=== PATIENT | female | born 1955 | race Caucasian/White ===

== ENCOUNTER 2016-12-25 07:06 | Inpatient (IN) | payer BC ==
[~2016-12-25] VITALS: Ht 172.7 cm; Wt 119.7 kg
--- NOTE | 2016-12-25 07:22 | PHYS DOC ---
Adult General Chief Complaint Chief Complaint: NEURO SYMPTOMS/DEFICITS HPI HPI Patient is a 61 year old F who presents with left-sided facial droop. Patient states she woke up this morning with left-sided facial droop however went to bed last night around 10 PM and was normal. Patient has had a recent stroke and has recently been worked up including MRI. Patient states she's had some left upper extremity weakness that is been persistent since her recent stroke. Patient complains of some slurring of the speech along with her facial droop. Patient denies any difficulty swallowing. Patient denies any other new neurological symptoms. Patient denies any chest pain or short of breath. Patient has no other complaints. Review of Systems Review of Systems GEN: Denies fevers, chills, sweats HEENT: Denies blurred vision, sore throat CV: Denies chest pain RESP: Denies shortness of air, cough GI: Denies n/v/d NEURO: Left-sided facial droop MSK: Denies weakness, joint pain/swelling Allergies Allergies Allergies Coded Allergies Type Severity Reaction Last Updated Verified No Known Drug Allergies 12/25/16 No Physical Exam Physical Exam GEN.: No apparent distress. Alert and oriented. HEENT: Head is normocephalic, atraumatic extraocular muscles were intact NECK: Supple. LUNGS: CTAB. HEART: RRR, S1, S2 present. Peripheral pulses intact ABDOMEN: Soft, nontender. Positive bowel sounds. EXTREMITIES: Without any cyanosis. Left upper extremity proximal and distal weakness with decreased seconds inspector strength consistent with previous stroke NEUROLOGIC: Slurred speech, left-sided facial droop with forehead sparing PSYCHIATRIC: Normal affect, normal mood. SKIN: No ulcerations Current Patient Data Vital Signs Vital Signs Date Time Temp Pulse Resp B/P (MAP) Pulse Ox O2 Delivery O2 Flow Rate FiO2 12/25/16 07:21 97.9 95 18 160/112 (128) 97 Room Air 97.9 Lab Values Laboratory Tests Test 12/25/16 07:38 White Blood Count 8.9 x10^3/uL (4.0-11.0) Red Blood Count 5.36 x10^6/uL (3.50-5.40) Hemoglobin 16.3 g/dL (12.0-15.5) H Hematocrit 48.6 % (36.0-47.0) H Mean Corpuscular Volume 91 fL (79-100) Mean Corpuscular Hemoglobin 30 pg (25-35) Mean Corpuscular Hemoglobin Concent 34 g/dL (31-37) Red Cell Distribution Width 13.7 % (11.5-14.5) Platelet Count 235 x10^3/uL (140-400) Neutrophils (%) (Auto) 73 % (31-73) Lymphocytes (%) (Auto) 17 % (24-48) L Monocytes (%) (Auto) 7 % (0-9) Eosinophils (%) (Auto) 2 % (0-3) Basophils (%) (Auto) 1 % (0-3) Neutrophils # (Auto) 6.5 x10^3uL (1.8-7.7) Lymphocytes # (Auto) 1.5 x10^3/uL (1.0-4.8) Monocytes # (Auto) 0.6 x10^3/uL (0.0-1.1) Eosinophils # (Auto) 0.2 x10^3/uL (0.0-0.7) Basophils # (Auto) 0.1 x10^3/uL (0.0-0.2) Sodium Level 141 mmol/L (136-145) Potassium Level 4.0 mmol/L (3.5-5.1) Chloride Level 103 mmol/L (98-107) Carbon Dioxide Level 32 mmol/L (21-32) Anion Gap 6 (6-14) Blood Urea Nitrogen 20 mg/dL (7-20) Creatinine 0.8 mg/dL (0.6-1.0) Estimated GFR (Cockcroft-Gault) 72.4 BUN/Creatinine Ratio 25 (6-20) H Glucose Level 115 mg/dL (70-99) H Calcium Level 9.3 mg/dL (8.5-10.1) Total Bilirubin 0.4 mg/dL (0.2-1.0) Aspartate Amino Transferase (AST) 12 U/L (15-37) L Alanine Aminotransferase (ALT) 24 U/L (14-59) Alkaline Phosphatase 100 U/L (46-116) Troponin I Quantitative < 0.017 ng/mL (0.000-0.055) Total Protein 7.3 g/dL (6.4-8.2) Albumin 3.6 g/dL (3.4-5.0) Albumin/Globulin Ratio 1.0 (1.0-1.7) Laboratory Tests 12/25/16 07:38 Laboratory Tests 12/25/16 07:38 EKG EKG 0808: EKG shows normal sinus rhythm rate of 84 no STEMI[] Radiology/Procedures Radiology/Procedures [] Course & Med Decision Making Course & Med Decision Making Pertinent Labs and Imaging studies reviewed. (See chart for details) ED course: Patient was seen and examined in the emergency room stroke workup was ordered 0755: Patient was updated on CT findings and plan to admit for possible stroke and obtain an MRI 0800: Discussed CC/HP/PMH with Dr. roman and recommends admit and neurology on consult 0805: Discussed CC/HP/PMH with Dr. Shipley and recommends MRI and asprin MDM: After reviewing the chart, CC/HPI/PMH, physical exam, [lab results], [ radiological results], I believe the patient and acute CVA however is not a candidate for TPA since last known well was 10 PM last night as outside the three-hour window. Patient will be admitted for further workup and management. [] Dragon Disclaimer Dragon Disclaimer This electronic medical record was generated, in whole or in part, using a voice recognition dictation system. Departure Departure Impression: Primary Impression: CVA (cerebral vascular accident) Disposition: ADMITTED INPATIENT Admitting Physician: Gracy Roman Condition: STABLE POPEYE DALAL DO Dec 25, 2016 07:22
--- NOTE | 2016-12-25 07:39 | RAD ---
Indication left-sided facial droop and weakness. The patient reports she was told she had a recent right-sided stroke. Noncontrast images of the head were obtained. No prior imaging of the head is available. Preliminary results were communicated to Dr. Ram, in the emergency room, at the time of dictation. The calvarium appears unremarkable. The visualized paranasal sinuses appear normal. There is no subdural or epidural hematoma. There is some enlargement of the cisterna magna, a normal variant. There is some parenchymal loss in the right parietal lobe near the vertex compatible with an old insult. A mass or midline shift is not seen. No hemorrhage is seen. No acute finding is apparent. IMPRESSION: No acute finding seen on noncontrast CT images of the head PQRS Compliance Statement: One or more of the following individualized dose reduction techniques were utilized for this examination: 1. Automated exposure control 2. Adjustment of the mA and/or kV according to patient size 3. Use of iterative reconstruction technique
[2016-12-25 07:55] LABS: BASO # 0.1 x10^3/uL (0.0-0.2); BASO % 1 % (0-3); EOS % 2 % (0-3); HEMATOCRIT 48.6 % (36.0-47.0); HEMOGLOBIN 16.3 g/dL (12.0-15.5); LYMPH # 1.5 x10^3/uL (1.0-4.8); LYMPH % 17 % (24-48); MEAN CORPUSCULAR HEMOGLOBIN 30 pg (25-35); MEAN CORPUSCULAR HGB CONC 34 g/dL (31-37); MEAN CORPUSCULAR VOLUME 91 fL (79-100); MONO % 7 % (0-9); NEUT % 73 % (31-73); PLATELET COUNT 235 x10^3/uL (140-400); RED BLOOD COUNT 5.36 x10^6/uL (3.50-5.40); RED CELL DISTRIBUTION WIDTH 13.7 % (11.5-14.5); WHITE BLOOD COUNT 8.9 x10^3/uL (4.0-11.0)
[2016-12-25 08:02] LABS: CALCIUM 9.3 mg/dL (8.5-10.1); CREATININE 0.8 mg/dL (0.6-1.0); GFR 72.4
--- NOTE | 2016-12-25 08:05 | RAD ---
Indication possible stroke. Protocol study. A single view of the chest was obtained. No prior imaging of the chest is available. The heart and pulmonary vessels appear normal. The lungs are clear. There is no pleural fluid or pneumothorax. The visualized bony structures appear grossly intact. IMPRESSION: No acute or focal process seen in the chest
[2016-12-25 08:08] LABS: ALBUMIN 3.6 g/dL (3.4-5.0); TOTAL BILIRUBIN 0.4 mg/dL (0.2-1.0); TOTAL PROTEIN 7.3 g/dL (6.4-8.2)
[2016-12-25] MEDS ORDERED: ACETAMINOPHEN 325 MG TABLET. PO PRN ×2 (08:15→10:15)
[2016-12-25] MEDS ORDERED: MORPHINE SULFATE 4 MG/ML DISP.SYRIN. IV PRN (08:15)
[2016-12-25] MEDS ORDERED: ONDANSETRON PF 4 MG/2 ML VIAL. IV PRN ×2 (08:15→12:45)
[2016-12-25 08:31] LABS: BILIRUBIN,URINE NEGATIVE (NEG); GLUCOSE,URINE NEGATIVE (NEG); NITRITE,URINE NEGATIVE (NEG); PROTEIN,URINE NEGATIVE (NEG-TRACE); UROBILINOGEN,URINE 0.2 mg/dL (0.2 mg/dL)
[2016-12-25] MEDS ORDERED: ASPIRIN 325 MG TABLET PO ONE (08:45)
--- NOTE | 2016-12-25 08:47 | EKG ---
[facility] [address] [place] [address] Test Date: 2016-12-25 Test Time: 08:03:14 Pat Name: GATITO HANNA Department: Room: [facility] Gender: F Provider Relations Advocate: VALERIA : 1955 Requested By: POPEYE DALAL Order Number: [id number] Reading MD: Maisha Wiggins Measurements Intervals [place] Rate: 84 P: 108 TN: 170 QRS: -16 QRSD: 84 T: 58 QT: 362 QTc: 431 Interpretive Statements SINUS RHYTHM LEFTWARD AXIS QRS(T) CONTOUR ABNORMALITY CANNOT RULE OUT ANTEROSEPTAL MYOCARDIAL DAMAGE T ABNORMALITY IN HIGH LATERAL LEADS Electronically Signed On 12-28-2016 9:31:42 CDT by Maisha Wiggins
[2016-12-25 08:48] LABS: BACTERIA,URINE FEW /HPF (0-FEW); RBC,URINE 0 /HPF (0-2); SQUAMOUS EPITHELIAL CELL,UR FEW /LPF
[2016-12-25] MEDS ORDERED: GADOBUTROL 10 MMOL/10 ML VIAL IV ONE (09:00)
[2016-12-25] MEDS ORDERED: ASPIRIN CHEWABLE 81 MG TABLET. PO ONE (09:00)
--- NOTE | 2016-12-25 09:29 | RAD ---
MRI Brain with and without contrast History: Left arm numbness Technique: Multiplanar, multi sequential pre and postcontrast MR imaging was performed of the brain. Contrast: 10 cc Gadavist Comparison: None Findings: There is a fairly large area of restricted diffusion centered in the right parietal lobe with cortical involvement with corresponding T2 and FLAIR hyperintense signal, also prominent associated laminar necrosis signified by serpentine T1 shortening, not associated with significant decreased signal on the gradient echo sequence. Area of diffusion signal abnormality is mostly associated with some variable isointense decreased signal on the ADC map although also more focal area of restricted diffusion along the right parietal cortex not associated with significant T2 and FLAIR hyperintense signal. There are also a few other small foci restricted diffusion with corresponding T2 and FLAIR hyperintense signal of the right frontal lobe and right occipital lobe. There is tiny old lacunar infarct of the right cerebellum.,The ventricles, sulci, and cisterns are within normal limits in size and configuration. There is no significant midline shift, intraaxial mass effect, or focal abnormal extra-axial fluid collection. There is preservation of the major intracranial flow-voids at the skull base. The cerebellar tonsils are normal in location. Pituitary gland is small. There is increased CSF signal of the optic nerve sheaths bilaterally. There is patchy mild ethmoid air cell mucosal thickening. There is very minimal thickening of the mastoid air cells. Impression: 1. There is large late subacute infarct centered in the right parietal lobe although likely component of superimposed more acute infarct along the cortical surface. There is associated prominent laminar necrosis. There are also a a few small foci of recent likely subacute infarcts of the right frontal lobe and right occipital lobe. 2. There is increased CSF signal of the optic nerve sheaths and small pituitary gland. Findings could be incidental although can be associated with intracranial hypertension. FOR INTERNAL CODING PURPOSES Critical result: Findings discussed with Yosvany Ram at 12/25/2016 9:16 AM. RESULT CODE: (C) Electronically signed by: Matt Pearce MD (12/25/2016 9:25 AM) [email or web address]
[2016-12-25] MEDS ORDERED: ACETAMINOPHEN 650 MG SUPP.RECT. PR PRN (10:00)
[2016-12-25] MEDS ORDERED: LABETALOL 20 MG/4 ML DISP.SYRIN. IVP PRN (10:00)
[2016-12-25 10:42] VITALS: BP 145/90
[2016-12-25 10:43] VITALS: BP 145/90
--- NOTE | 2016-12-25 11:03 | PDOC2 ---
NEUROLOGY CONSULT Date of Admission Date of Admission DATE: 12/25/16 TIME: 10:56 Reason for Consult Reason for Consult: Stroke symptoms Referring Physician Referring Physician: Dr. Ponce PCP: Dr. Ontiveros Source Source: Caregiver, Chart review, Patient History of Present Illness History of Present Illness The patient is a 61-year-old right-handed female who awoke this morning with left facial weakness. She had some dysarthria. Symptoms have improved. Last known normal was 10 PM last night. 2 weeks ago she had sudden onset of left hand weakness. Her primary physician work drop as an outpatient with negative MRI brain, echocardiogram, and carotid Doppler. The patient is taking a daily aspirin. she has no prior history of stroke, seizure, or head injury. 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 Current Medications Current Medications Current Medications Ondansetron HCl (Zofran) 4 mg PRN Q8HRS PRN IV NAUSEA/VOMITING; Start 12/25/16 at 08:15; Stop 12/26/16 at 08:14 Morphine Sulfate 4 mg PRN Q2HR PRN IV PAIN; Start 12/25/16 at 08:15; Stop at 08:14 Acetaminophen (Tylenol) 650 mg PRN Q4HRS PRN PO FEVER; Start 12/25/16 at 08:15; Stop 12/26/16 at 08:14 Aspirin (Solomon Aspirin) 325 mg 1X ONCE PO ; Start 12/25/16 at 08:45; Stop at 09:02; Status DC Gadobutrol (Gadavist) 10 mmol 1X ONCE IV Last administered on 12/25/16 08:43; Start 12/25/16 at 09:00; Stop 12/25/16 at 09:01; Status DC Aspirin (Children'S Aspirin) 243 mg 1X ONCE PO Last administered on 12/25/16 09:03; Start 12/25/16 at 09:00; Stop 12/25/16 at 09:06; Status DC Sodium Chloride 1,000 ml @ 100 mls/hr Q10H IV ; Start 12/25/16 at 10:00 Enoxaparin Sodium (Lovenox 40mg Syringe) 40 mg BID SQ ; Start 12/25/16 at 11:00 Labetalol HCl (Normodyne) 10 mg PRN Q10MIN PRN IVP COMM; Start 12/25/16 at 10:00 Simvastatin (Zocor) 10 mg QHS PO ; Start 12/25/16 at 21:00 Acetaminophen (Tylenol) 650 mg PRN Q4HRS PRN PO TEMP > 100.4F; Start 12/25/16 at 10:15 Acetaminophen (Acetaminophen Supp) 650 mg PRN Q4HRS PRN TX TEMP > 100.4F; Start 12/25/16 at 10:00 Allergies Allergies: Coded Allergies: No Known Drug Allergies (Unverified , 12/25/16) ROS Review of System Negative for fevers, chills, weight loss, shortness of breath, chest pain, indigestion, hematochezia, melena, dysuria. Full 14-point review systems is negative. Physical Exam Physical Examination PHYSICAL EXAMINATION: Vital signs: see above. General appearance is normal and in no acute distress. HEENT: Normocephalic and nontraumatic. Eyes, nose, ears, and throat are unremarkable. Neck is supple. No lymphadenopathy. No bruits are heard over the carotid artery. No crepitus. NEUROLOGICAL EXAMINATION: Mental Status Examination: Alert. Oriented to time, place, and person. Answers questions and follows commends. Pupils are equal round and reactive to light and accommodation. Extraocular movements are intact. Visual field exam shows no defect on the direct confrontation. Central left facial weakness. Uvula in the midline and the soft palate elevated symmetrically. No deviation of the tongue to any direction. Gross hearing is normal. Shoulder shrug normal. Muscle tone is normal. 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 Deep tendon reflexes are 2+ all around. Plantar reflex is with flexion response bilaterally. [id number] test performance is accurate. Tandem walk test is accurate. Alternative movements are accurate. Romberg test is negative. Gait is normal. Sensory exam shows no deficits. No cerebellar signs are elicited. Vitals VITALS Vital Signs Date Time Temp Pulse Resp B/P (MAP) Pulse Ox O2 Delivery O2 Flow Rate FiO2 12/25/16 10:43 97.7 90 19 145/90 (108) 95 Room Air 97.7 Labs Labs Laboratory Tests Test 12/25/16 07:38 12/25/16 08:13 White Blood Count 8.9 x10^3/uL (4.0-11.0) Red Blood Count 5.36 x10^6/uL (3.50-5.40) Hemoglobin 16.3 g/dL (12.0-15.5) Hematocrit 48.6 % (36.0-47.0) Mean Corpuscular Volume 91 fL (79-100) Mean Corpuscular Hemoglobin 30 pg (25-35) Mean Corpuscular Hemoglobin Concent 34 g/dL (31-37) Red Cell Distribution Width 13.7 % (11.5-14.5) Platelet Count 235 x10^3/uL (140-400) Neutrophils (%) (Auto) 73 % (31-73) Lymphocytes (%) (Auto) 17 % (24-48) Monocytes (%) (Auto) 7 % (0-9) Eosinophils (%) (Auto) 2 % (0-3) Basophils (%) (Auto) 1 % (0-3) Neutrophils # (Auto) 6.5 x10^3uL (1.8-7.7) Lymphocytes # (Auto) 1.5 x10^3/uL (1.0-4.8) Monocytes # (Auto) 0.6 x10^3/uL (0.0-1.1) Eosinophils # (Auto) 0.2 x10^3/uL (0.0-0.7) Basophils # (Auto) 0.1 x10^3/uL (0.0-0.2) Sodium Level 141 mmol/L (136-145) Potassium Level 4.0 mmol/L (3.5-5.1) Chloride Level 103 mmol/L (98-107) Carbon Dioxide Level 32 mmol/L (21-32) Anion Gap 6 (6-14) Blood Urea Nitrogen 20 mg/dL (7-20) Creatinine 0.8 mg/dL (0.6-1.0) Estimated GFR (Cockcroft-Gault) 72.4 BUN/Creatinine Ratio 25 (6-20) Glucose Level 115 mg/dL (70-99) Calcium Level 9.3 mg/dL (8.5-10.1) Total Bilirubin 0.4 mg/dL (0.2-1.0) Aspartate Amino Transf (AST/SGOT) 12 U/L (15-37) Alanine Aminotransferase (ALT/SGPT) 24 U/L (14-59) Alkaline Phosphatase 100 U/L (46-116) Troponin I Quantitative < 0.017 ng/mL (0.000-0.055) Total Protein 7.3 g/dL (6.4-8.2) Albumin 3.6 g/dL (3.4-5.0) Albumin/Globulin Ratio 1.0 (1.0-1.7) Urine Collection Type Unknown Urine Color Yellow Urine Clarity Clear Urine pH 5.0 Urine Specific [place] 1.010 Urine Protein Negative mg/dL (NEG-TRACE) Urine Glucose (UA) Negative mg/dL (NEG) Urine Ketones (Stick) Negative mg/dL (NEG) Urine Blood Negative (NEG) Urine Nitrite Negative (NEG) Urine Bilirubin Negative (NEG) Urine Urobilinogen Dipstick 0.2 mg/dL (0.2 mg/dL) Urine Leukocyte Esterase Negative (NEG) Urine RBC 0 /HPF (0-2) Urine WBC 1-4 /HPF (0-4) Urine Squamous Epithelial Cells Few /LPF Urine Bacteria Few /HPF (0-FEW) Urine Mucus Slight /LPF Laboratory Tests Test 12/25/16 07:38 12/25/16 08:13 White Blood Count 8.9 x10^3/uL (4.0-11.0) Red Blood Count 5.36 x10^6/uL (3.50-5.40) Hemoglobin 16.3 g/dL (12.0-15.5) Hematocrit 48.6 % (36.0-47.0) Mean Corpuscular Volume 91 fL (79-100) Mean Corpuscular Hemoglobin 30 pg (25-35) Mean Corpuscular Hemoglobin Concent 34 g/dL (31-37) Red Cell Distribution Width 13.7 % (11.5-14.5) Platelet Count 235 x10^3/uL (140-400) Neutrophils (%) (Auto) 73 % (31-73) Lymphocytes (%) (Auto) 17 % (24-48) Monocytes (%) (Auto) 7 % (0-9) Eosinophils (%) (Auto) 2 % (0-3) Basophils (%) (Auto) 1 % (0-3) Neutrophils # (Auto) 6.5 x10^3uL (1.8-7.7) Lymphocytes # (Auto) 1.5 x10^3/uL (1.0-4.8) Monocytes # (Auto) 0.6 x10^3/uL (0.0-1.1) Eosinophils # (Auto) 0.2 x10^3/uL (0.0-0.7) Basophils # (Auto) 0.1 x10^3/uL (0.0-0.2) Sodium Level 141 mmol/L (136-145) Potassium Level 4.0 mmol/L (3.5-5.1) Chloride Level 103 mmol/L (98-107) Carbon Dioxide Level 32 mmol/L (21-32) Anion Gap 6 (6-14) Blood Urea Nitrogen 20 mg/dL (7-20) Creatinine 0.8 mg/dL (0.6-1.0) Estimated GFR (Cockcroft-Gault) 72.4 BUN/Creatinine Ratio 25 (6-20) Glucose Level 115 mg/dL (70-99) Calcium Level 9.3 mg/dL (8.5-10.1) Total Bilirubin 0.4 mg/dL (0.2-1.0) Aspartate Amino Transf (AST/SGOT) 12 U/L (15-37) Alanine Aminotransferase (ALT/SGPT) 24 U/L (14-59) Alkaline Phosphatase 100 U/L (46-116) Troponin I Quantitative < 0.017 ng/mL (0.000-0.055) Total Protein 7.3 g/dL (6.4-8.2) Albumin 3.6 g/dL (3.4-5.0) Albumin/Globulin Ratio 1.0 (1.0-1.7) Urine Collection Type Unknown Urine Color Yellow Urine Clarity Clear Urine pH 5.0 Urine Specific [place] 1.010 Urine Protein Negative mg/dL (NEG-TRACE) Urine Glucose (UA) Negative mg/dL (NEG) Urine Ketones (Stick) Negative mg/dL (NEG) Urine Blood Negative (NEG) Urine Nitrite Negative (NEG) Urine Bilirubin Negative (NEG) Urine Urobilinogen Dipstick 0.2 mg/dL (0.2 mg/dL) Urine Leukocyte Esterase Negative (NEG) Urine RBC 0 /HPF (0-2) Urine WBC 1-4 /HPF (0-4) Urine Squamous Epithelial Cells Few /LPF Urine Bacteria Few /HPF (0-FEW) Urine Mucus Slight /LPF Images Images CT head: Noncontrast images of the head were obtained. No prior imaging of the head is available. Preliminary results were communicated to Dr. Ram, in the emergency room, at the time of dictation. The calvarium appears unremarkable. The visualized paranasal sinuses appear normal. There is no subdural or epidural hematoma. There is some enlargement of the cisterna magna, a normal variant. There is some parenchymal loss in the right parietal lobe near the vertex compatible with an old insult. A mass or midline shift is not seen. No hemorrhage is seen. No acute finding is apparent. IMPRESSION: No acute finding seen on noncontrast CT images of the head MRI brain: Findings: There is a fairly large area of restricted diffusion centered in the right parietal lobe with cortical involvement with corresponding T2 and FLAIR hyperintense signal, also prominent associated laminar necrosis signified by serpentine T1 shortening, not associated with significant decreased signal on the gradient echo sequence. Area of diffusion signal abnormality is mostly associated with some variable isointense decreased signal on the ADC map although also more focal area of restricted diffusion along the right parietal cortex not associated with significant T2 and FLAIR hyperintense signal. There are also a few other small foci restricted diffusion with corresponding T2 and FLAIR hyperintense signal of the right frontal lobe and right occipital lobe. There is tiny old lacunar infarct of the right cerebellum.,The ventricles, sulci, and cisterns are within normal limits in size and configuration. There is no significant midline shift, intraaxial mass effect, or focal abnormal extra-axial fluid collection. There is preservation of the major intracranial flow-voids at the skull base. The cerebellar tonsils are normal in location. Pituitary gland is small. There is increased CSF signal of the optic nerve sheaths bilaterally. There is patchy mild ethmoid air cell mucosal thickening. There is very minimal thickening of the mastoid air cells. Impression: 1. There is large late subacute infarct centered in the right parietal lobe although likely component of superimposed more acute infarct along the cortical surface. There is associated prominent laminar necrosis. There are also a a few small foci of recent likely subacute infarcts of the right frontal lobe and right occipital lobe. 2. There is increased CSF signal of the optic nerve sheaths and small pituitary gland. Findings could be incidental although can be associated with intracranial hypertension. Assessment/Plan Assessment/Plan Impression: Right hemispheric cortical infarct, possible artery-artery emboli or cardiac emboli as we now have had 2 separate events 2 weeks apart. Failure on aspirin Recommendations: Obtain outpatient prior work up, brain MRI, echocardiogram, carotid Doppler. CTA angiogram Transesophageal echocardiogram Plavix Rehabilitation modalities Blood pressure control per parameters Not a candidate for tissue plasminogen activator or interventional radiological procedures especially since the MRI demonstrates infarction already. Thank you for letting me help with the patient's care. TONA ELIZABETH MD Dec 25, 2016 11:03
--- NOTE | 2016-12-25 11:11 | PDOC ---
Provider Note Provider Note 12/25/2016 1100 This is a pleasant 61 yo female admitted for stroke symptoms. She has been noted with possible embolic origin. Pt does not have hx of tachyarrhythmias but notable for stroke symptom recurrence. Neurology has requested CARLOS. Discussed risks and benefits and agreeable to proceed. KULDIP PATEL APRN Dec 25, 2016 11:11
[2016-12-25] MEDS ORDERED: CONTRAST GIVEN MC PRN (11:45)
[2016-12-25] MEDS ORDERED: IOHEXOL 300 MG/ML 75 ML VIAL IV ONE (11:45)
[2016-12-25] MEDS ORDERED: TIOT4MIS5 IH (11:53)
[2016-12-25] MEDS ORDERED: PROAIR HFA8.5 GM INH (11:53)
[2016-12-25] MEDS ORDERED: HYDR200T PO (11:53)
[2016-12-25] MEDS ORDERED: IOHEXOL 300 MG/ML 75 ML VIAL ONE (12:01)
[2016-12-25] MEDS ORDERED: LIDOCAINE 2% PF Vial for OR 5 ML VIAL. ONE (12:23)
[2016-12-25] MEDS ORDERED: PROPOFOL 40 ML IV ONE (12:23)
[2016-12-25] MEDS ORDERED: IV RINGERS,LACTATED 1000ML 1,000 ML IV SCH (12:37)
[2016-12-25] MEDS ORDERED: MORPHINE SULFATE 2 MG/ML DISP.SYRIN. IV PRN (12:45)
[2016-12-25] MEDS ORDERED: LIDOCAINE 1% 1 ML SYRINGE. ID PRN (12:45)
[2016-12-25] MEDS ORDERED: fentaNYL PF VIAL 100 MCG/2 ML VIAL IV PRN ×2 (12:45)
[2016-12-25] MEDS ORDERED: HYDROmorphone 2 MG/ML VIAL IV PRN (12:45)
[2016-12-25] MEDS ORDERED: PROCHLORPERAZINE 10 MG/2 ML VIAL. IV PRN (12:45)
[2016-12-25] MEDS ORDERED: BENZOCAINE ONE 20% MUCOSAL SPRAY. MM (13:45)
[2016-12-25] MEDS ORDERED: LIDOCAINE 2% TOPICAL JELLY 30GM TUBE. TP ONE (13:45)
[2016-12-25] MEDS: ENOXAPARIN 40 MG/0.4 ML SYRINGE. SQ SCH ×2 (14:43→20:57)
[2016-12-25] MEDS: IV NORMAL SALINE 1000ML BAG 1,000 ML IV SCH (14:43)
[2016-12-25] MEDS: CLOPIDOGREL BISULFATE 75 MG TABLET PO SCH (14:43)
[2016-12-25 14:54] VITALS: BP 136/71
[2016-12-25] MEDS ORDERED: NICOTINE POLACRILEX 2MG GUM PACKAGE of 12. BC PRN (15:00)
[2016-12-25] MEDS ORDERED: NICOTINE 14MG PATCH. TD PRN (15:00)
[2016-12-25] MEDS: ASPIRIN 325 MG TABLET PO SCH (15:00)
[2016-12-25] MEDS ORDERED: NON FORMULARY ITEM (Albuterol Sulfate (Proair Hfa Inhaler) 1 PUFF) INH PRN (15:00)
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
[2016-12-25] MEDS ORDERED: ALBUTEROL SULFATE 2.5 MG/3 ML NEBU. NEB PRN (15:15)
[2016-12-25] MEDS: IPRATRPIUM/ALBUTEROL 0.5/2.5MG 3 ML NEBU. NEB SCH ×2 (15:49→20:20)
--- NOTE | 2016-12-25 16:39 | RAD ---
Indication CVA. CTA targeted to the major vessels off the arch of the aorta as well as the carotid vessels and the intracranial vessels was performed. Note is made of the MRI examination performed the same day demonstrating infarcts in the right cerebral hemisphere. Approximately 75 cc of Omnipaque 300 was administered. Images were generated and reviewed in the coronal and sagittal planes. Volume rendered images were also generated and reviewed There are emphysematous and fibrotic changes at the lung apices. A significant soft tissue finding in the neck is not seen. There are degenerative changes in the cervical spine. The innominate artery originates unremarkably off the arch and bifurcates normally. The left common carotid also originates unremarkably off the arch as does the left subclavian. Those portions of each subclavian artery which were seen appeared unremarkable The innominate artery bifurcates unremarkably into the right common carotid and right subclavian. The most proximal common carotid is somewhat tortuous. The bifurcation is unremarkable without evidence of significant stenosis. The internal carotid is slightly tortuous. The horizontal and cavernous segments appear unremarkable. There is no significant finding seen associated with the supraclinoid segment. The left common carotid originates unremarkably. There is no significant stenosis at the bifurcation. The internal carotid appears unremarkable. The horizontal and cavernous segments appear normal. No significant disease is seen associated with the supraclinoid segment. The vertebral arteries originate unremarkably off their respective subclavian arteries. The vertebral arteries unite unremarkably to form the basilar artery. At the [place] the left A1 segment is slightly hypoplastic likely a normal variant. The anterior cerebrals are seen and appear unremarkable. Posterior cerebral arteries appear unremarkable. Significant vascular anomaly is not seen. IMPRESSION: No evidence of significant arterial disease seen in the head or neck.
[2016-12-25 20:43] VITALS: BP 137/86
[2016-12-25] MEDS: SIMVASTATIN 10 MG TABLET PO SCH (20:56)
[2016-12-25] MEDS: HYDROXYCHLOROQUINE 200 MG TABLET PO SCH (21:00)
[2016-12-25 23:58] VITALS: BP 113/70
--- NOTE | 2016-12-26 01:04 | ACF ---
Admission Forms Criteria TELEMETRY CARE Telemetry Admission Guidelines (Place 'X' for any and all applicable criteria): Admission to telemetry [A] may be indicated for ANY ONE of the following(1)(2)(3 )(4)(5): [ ]I. Cardiac disease, including ANY ONE of the following (9)(10)(11)(12)(13 ): [ ]a) Postacute FL [ ]b) Low-risk patients with ST-segment elevation FL who have undergone successful percutaneous coronary intervention [ ]c) Unstable angina [ ]d) Suspected FL (until it is ruled out) [ ]e) Post cardiac surgery (first 48 to 72 hours unless complications occur) [ ]f) Acute arrhythmias (including significant tachycardia or bradycardia) [B] [ ]g) Firing of an implantable cardioverter defibrillator [C] [ ]h) Suspected pacemaker or implantable cardioverter defibrillator malfunction (10) [ ]i) New administration or adjustment of an antiarrhythmic drug [D ] [ ]j) Child admitted for acute congestive heart failure [ ]j) Long QT syndrome [ ]k) Advanced heart block (eg, second-degree Mobitz type II, third- degree heart block) [ ]l) Acute myocarditis or pericarditis [ ]m) Short-term (ambulatory or inpatient) monitoring after a cardiac procedure as indicated by ANY ONE of the following [E]: [ ]i) Electrophysiologic studies [ ]ii) Percutaneous coronary intervention with stent placement [ ]iii) Pacemaker placement with cardiac conduction defect [ ]iv) Implantable cardiac defibrillator placement [ ]II. Drug overdose or poisoning with substance that causes arrhythmias or QT prolongation (eg, phenothiazines, sympathomimetic agents, cyclic antidepressants, digitalis, antiarrhythmic drugs)(15) [ ]III. Short-term (ambulatory or inpatient) monitoring after therapeutic or diagnostic procedure requiring conscious sedation or anesthesia (eg, endoscopy, elective cardioversion) [X]IV. Acute cerebrovascular even[F](18) [ ]V. Massive blood transfusion (eg, at least 10 units of packed red blood cells in 24 hours) [ ]. Variceal bleeding after endoscopy, sclerotherapy, or IV vasopressin [ ]VII. Uncorrected electrolyte abnormalities associated with an increased risk of dangerous arrhythmia [G]; examples include [ ]a) Hyperkalemia with attributable ECG changes [ ]b) Potassium greater than 6.5 mmol/L (mEq/L) in a patient without history of chronic renal disease [ ]c) Prolonged QT attributed to hypokalemia, hypomagnesemia, or hypocalcemia [ ]VIII.Unexplained syncope or other neurologic event suspected of being due to arrhythmia due to a finding that increases risk; examples include(19)(20)(21): [ ]a) High-risk ECG findings (eg, bifascicular block, bradycardia, abnormal QT interval, ventricular pre- excitation) [ ]b) History of previous syncope due to arrhythmia [ ]c) Abnormal ventricular function (eg, reduced ejection fraction ) [ ]d) Exertional or supine syncope [ ]e) Concerning syncope characteristics (eg, sudden loss of consciousness without prodrome) [ ]f) Family history of sudden [ ]g) Use of arrhythmogenic medication [ ]h) Suspected cardiac ischemia [ ]i) Known channelopathy (eg, long QT syndrome, Brugada syndrome, or catecholaminergic paroxysmal ventricular tachycardia) [ ]j) Known structural heart disease (eg, hypertrophic cardiomyopathy , severe valvular disease) [ ]k) Palpitations preceding syncope The original [employer] content created by [employer] has been revised. The portions of the content which have been revised are identified through the use of italic text or in bold, and [email or web address] has neither reviewed nor approved the modified material. All other unmodified content is copyright [employer]. Please see references footnoted in the original [employer] edition 2015 Admission Criteria Met?: Yes JENNIFER ZALDIVAR Dec 26, 2016 01:04
[2016-12-26] MEDS: IV NORMAL SALINE 1000ML BAG 1,000 ML IV SCH ×2 (02:00→12:03)
[2016-12-26 02:54] VITALS: BP 114/58
[2016-12-26 05:01] LABS: BASO # 0.1 x10^3/uL (0.0-0.2); BASO % 1 % (0-3); EOS % 2 % (0-3); HEMATOCRIT 45.7 % (36.0-47.0); HEMOGLOBIN 14.9 g/dL (12.0-15.5); LYMPH # 1.4 x10^3/uL (1.0-4.8); LYMPH % 15 % (24-48); MEAN CORPUSCULAR HEMOGLOBIN 30 pg (25-35); MEAN CORPUSCULAR HGB CONC 33 g/dL (31-37); MEAN CORPUSCULAR VOLUME 90 fL (79-100); MONO % 8 % (0-9); NEUT % 74 % (31-73); PLATELET COUNT 210 x10^3/uL (140-400); RED BLOOD COUNT 5.06 x10^6/uL (3.50-5.40); RED CELL DISTRIBUTION WIDTH 13.8 % (11.5-14.5); WHITE BLOOD COUNT 9.2 x10^3/uL (4.0-11.0)
[2016-12-26 05:13] LABS: CALCIUM 8.7 mg/dL (8.5-10.1); CREATININE 0.8 mg/dL (0.6-1.0); GFR 72.4
[2016-12-26 05:34] LABS: CHOLESTEROL/HDL RATIO 3.7
[2016-12-26 07:23] VITALS: BP 152/79
[2016-12-26] MEDS: IPRATRPIUM/ALBUTEROL 0.5/2.5MG 3 ML NEBU. NEB SCH ×4 (07:34→19:58)
[2016-12-26] MEDS: ASPIRIN 325 MG TABLET PO SCH (08:57)
[2016-12-26] MEDS: ENOXAPARIN 40 MG/0.4 ML SYRINGE. SQ SCH ×2 (08:57→20:52)
[2016-12-26] MEDS: HYDROXYCHLOROQUINE 200 MG TABLET PO SCH ×2 (08:57→20:51)
[2016-12-26] MEDS: CLOPIDOGREL BISULFATE 75 MG TABLET PO SCH (08:57)
[2016-12-26] MEDS ORDERED: NON FORMULARY ITEM (Tiotropium Bromide (Spiriva Respimat) 2.5 MCG) IH SCH (09:00)
[2016-12-26 11:00] VITALS: BP 115/64
--- NOTE | 2016-12-26 13:24 | PDOC ---
PROGRESS NOTES Chief Complaint Chief Complaint right subacute parietal infarct with mild left facial droop and left hand weakness tobaccoism HTN morbid obesity plan: fu with neuro CARLOS neg MRI done + stroke head/neck CTA neg color doppler Echo ordere by dr. Ponce family and nurse told me afib, but didnot see the EKG with afib, only seen sinus now, fu with card PTOT ON ASA, PLAVIX, ZOCOR daughter c/o that pt was taking anoro, spiriva from PCP 2 weeks ago wo diagnosis of COPD and these meds are related to afib and stroke, which i dont know, could be rare. will get pulm to better explain History of Present Illness History of Present Illness ROS: no chills, sob or chest pain T 100.6 no signs of infection daughter c/o that pt was taking anoro, spiriva from PCP 2 weeks ago wo diagnosis of COPD and these meds are related to afib and stroke pt was very anxious to know why she has stroke Vitals Vitals Vital Signs Date Time Temp Pulse Resp B/P (MAP) Pulse Ox O2 Delivery O2 Flow Rate FiO2 12/26/16 12:47 Room Air 12/26/16 11:00 97.7 59 18 115/64 (81) 93 97.7 Physical Exam Physical Exam mild left facial droop left hand strength 2/5, forearm 4/5 General: Alert, Oriented X3, Cooperative, No acute distress Heart: Regular rate, Normal S1, Normal S2 Lungs: Clear Abdomen: Normal bowel sounds, Soft Extremities: No clubbing, No edema Skin: No rashes, No significant lesion Labs LABS Laboratory Tests Test 12/26/16 04:35 White Blood Count 9.2 x10^3/uL (4.0-11.0) Red Blood Count 5.06 x10^6/uL (3.50-5.40) Hemoglobin 14.9 g/dL (12.0-15.5) Hematocrit 45.7 % (36.0-47.0) Mean Corpuscular Volume 90 fL (79-100) Mean Corpuscular Hemoglobin 30 pg (25-35) Mean Corpuscular Hemoglobin Concent 33 g/dL (31-37) Red Cell Distribution Width 13.8 % (11.5-14.5) Platelet Count 210 x10^3/uL (140-400) Neutrophils (%) (Auto) 74 % (31-73) Lymphocytes (%) (Auto) 15 % (24-48) Monocytes (%) (Auto) 8 % (0-9) Eosinophils (%) (Auto) 2 % (0-3) Basophils (%) (Auto) 1 % (0-3) Neutrophils # (Auto) 6.8 x10^3uL (1.8-7.7) Lymphocytes # (Auto) 1.4 x10^3/uL (1.0-4.8) Monocytes # (Auto) 0.7 x10^3/uL (0.0-1.1) Eosinophils # (Auto) 0.2 x10^3/uL (0.0-0.7) Basophils # (Auto) 0.1 x10^3/uL (0.0-0.2) Sodium Level 140 mmol/L (136-145) Potassium Level 4.0 mmol/L (3.5-5.1) Chloride Level 104 mmol/L (98-107) Carbon Dioxide Level 28 mmol/L (21-32) Anion Gap 8 (6-14) Blood Urea Nitrogen 17 mg/dL (7-20) Creatinine 0.8 mg/dL (0.6-1.0) Estimated GFR (Cockcroft-Gault) 72.4 Glucose Level 112 mg/dL (70-99) Calcium Level 8.7 mg/dL (8.5-10.1) Triglycerides Level 108 mg/dL (0-150) Cholesterol Level 168 mg/dL (0-200) LDL Cholesterol, Calculated 100 mg/dL (0-100) VLDL Cholesterol, Calculated 22 mg/dL (0-40) Non-HDL Cholesterol Calculated 122 mg/dL (0-129) HDL Cholesterol 46 mg/dL (40-60) Cholesterol/HDL Ratio 3.7 Comment Review of Relevant I have reviewed the following items anabel (where applicable) has been applied. Labs Laboratory Tests Test 12/25/16 07:38 12/25/16 08:13 12/26/16 04:35 White Blood Count 8.9 x10^3/uL (4.0-11.0) 9.2 x10^3/uL (4.0-11.0) Red Blood Count 5.36 x10^6/uL (3.50-5.40) 5.06 x10^6/uL (3.50-5.40) Hemoglobin 16.3 g/dL (12.0-15.5) 14.9 g/dL (12.0-15.5) Hematocrit 48.6 % (36.0-47.0) 45.7 % (36.0-47.0) Mean Corpuscular Volume 91 fL (79-100) 90 fL (79-100) Mean Corpuscular Hemoglobin 30 pg (25-35) 30 pg (25-35) Mean Corpuscular Hemoglobin Concent 34 g/dL (31-37) 33 g/dL (31-37) Red Cell Distribution Width 13.7 % (11.5-14.5) 13.8 % (11.5-14.5) Platelet Count 235 x10^3/uL (140-400) 210 x10^3/uL (140-400) Neutrophils (%) (Auto) 73 % (31-73) 74 % (31-73) Lymphocytes (%) (Auto) 17 % (24-48) 15 % (24-48) Monocytes (%) (Auto) 7 % (0-9) 8 % (0-9) Eosinophils (%) (Auto) 2 % (0-3) 2 % (0-3) Basophils (%) (Auto) 1 % (0-3) 1 % (0-3) Neutrophils # (Auto) 6.5 x10^3uL (1.8-7.7) 6.8 x10^3uL (1.8-7.7) Lymphocytes # (Auto) 1.5 x10^3/uL (1.0-4.8) 1.4 x10^3/uL (1.0-4.8) Monocytes # (Auto) 0.6 x10^3/uL (0.0-1.1) 0.7 x10^3/uL (0.0-1.1) Eosinophils # (Auto) 0.2 x10^3/uL (0.0-0.7) 0.2 x10^3/uL (0.0-0.7) Basophils # (Auto) 0.1 x10^3/uL (0.0-0.2) 0.1 x10^3/uL (0.0-0.2) Sodium Level 141 mmol/L (136-145) 140 mmol/L (136-145) Potassium Level 4.0 mmol/L (3.5-5.1) 4.0 mmol/L (3.5-5.1) Chloride Level 103 mmol/L (98-107) 104 mmol/L (98-107) Carbon Dioxide Level 32 mmol/L (21-32) 28 mmol/L (21-32) Anion Gap 6 (6-14) 8 (6-14) Blood Urea Nitrogen 20 mg/dL (7-20) 17 mg/dL (7-20) Creatinine 0.8 mg/dL (0.6-1.0) 0.8 mg/dL (0.6-1.0) Estimated GFR (Cockcroft-Gault) 72.4 72.4 BUN/Creatinine Ratio 25 (6-20) Glucose Level 115 mg/dL (70-99) 112 mg/dL (70-99) Calcium Level 9.3 mg/dL (8.5-10.1) 8.7 mg/dL (8.5-10.1) Total Bilirubin 0.4 mg/dL (0.2-1.0) Aspartate Amino Transf (AST/SGOT) 12 U/L (15-37) Alanine Aminotransferase (ALT/SGPT) 24 U/L (14-59) Alkaline Phosphatase 100 U/L (46-116) Troponin I Quantitative < 0.017 ng/mL (0.000-0.055) Total Protein 7.3 g/dL (6.4-8.2) Albumin 3.6 g/dL (3.4-5.0) Albumin/Globulin Ratio 1.0 (1.0-1.7) Urine Collection Type Unknown Urine Color Yellow Urine Clarity Clear Urine pH 5.0 Urine Specific Brady 1.010 Urine Protein Negative mg/dL (NEG-TRACE) Urine Glucose (UA) Negative mg/dL (NEG) Urine Ketones (Stick) Negative mg/dL (NEG) Urine Blood Negative (NEG) Urine Nitrite Negative (NEG) Urine Bilirubin Negative (NEG) Urine Urobilinogen Dipstick 0.2 mg/dL (0.2 mg/dL) Urine Leukocyte Esterase Negative (NEG) Urine RBC 0 /HPF (0-2) Urine WBC 1-4 /HPF (0-4) Urine Squamous Epithelial Cells Few /LPF Urine Bacteria Few /HPF (0-FEW) Urine Mucus Slight /LPF Triglycerides Level 108 mg/dL (0-150) Cholesterol Level 168 mg/dL (0-200) LDL Cholesterol, Calculated 100 mg/dL (0-100) VLDL Cholesterol, Calculated 22 mg/dL (0-40) Non-HDL Cholesterol Calculated 122 mg/dL (0-129) HDL Cholesterol 46 mg/dL (40-60) Cholesterol/HDL Ratio 3.7 Laboratory Tests Test 12/26/16 04:35 White Blood Count 9.2 x10^3/uL (4.0-11.0) Red Blood Count 5.06 x10^6/uL (3.50-5.40) Hemoglobin 14.9 g/dL (12.0-15.5) Hematocrit 45.7 % (36.0-47.0) Mean Corpuscular Volume 90 fL (79-100) Mean Corpuscular Hemoglobin 30 pg (25-35) Mean Corpuscular Hemoglobin Concent 33 g/dL (31-37) Red Cell Distribution Width 13.8 % (11.5-14.5) Platelet Count 210 x10^3/uL (140-400) Neutrophils (%) (Auto) 74 % (31-73) Lymphocytes (%) (Auto) 15 % (24-48) Monocytes (%) (Auto) 8 % (0-9) Eosinophils (%) (Auto) 2 % (0-3) Basophils (%) (Auto) 1 % (0-3) Neutrophils # (Auto) 6.8 x10^3uL (1.8-7.7) Lymphocytes # (Auto) 1.4 x10^3/uL (1.0-4.8) Monocytes # (Auto) 0.7 x10^3/uL (0.0-1.1) Eosinophils # (Auto) 0.2 x10^3/uL (0.0-0.7) Basophils # (Auto) 0.1 x10^3/uL (0.0-0.2) Sodium Level 140 mmol/L (136-145) Potassium Level 4.0 mmol/L (3.5-5.1) Chloride Level 104 mmol/L (98-107) Carbon Dioxide Level 28 mmol/L (21-32) Anion Gap 8 (6-14) Blood Urea Nitrogen 17 mg/dL (7-20) Creatinine 0.8 mg/dL (0.6-1.0) Estimated GFR (Cockcroft-Gault) 72.4 Glucose Level 112 mg/dL (70-99) Calcium Level 8.7 mg/dL (8.5-10.1) Triglycerides Level 108 mg/dL (0-150) Cholesterol Level 168 mg/dL (0-200) LDL Cholesterol, Calculated 100 mg/dL (0-100) VLDL Cholesterol, Calculated 22 mg/dL (0-40) Non-HDL Cholesterol Calculated 122 mg/dL (0-129) HDL Cholesterol 46 mg/dL (40-60) Cholesterol/HDL Ratio 3.7 Medications Current Medications Ondansetron HCl (Zofran) 4 mg PRN Q8HRS PRN IV NAUSEA/VOMITING; Start 12/25/16 at 08:15; Stop 12/26/16 at 08:14; Status DC Morphine Sulfate 4 mg PRN Q2HR PRN IV PAIN; Start 12/25/16 at 08:15; Stop at 08:14; Status DC Acetaminophen (Tylenol) 650 mg PRN Q4HRS PRN PO FEVER; Start 12/25/16 at 08:15; Stop 12/25/16 at 11:06; Status DC Aspirin (Solomon Aspirin) 325 mg 1X ONCE PO ; Start 12/25/16 at 08:45; Stop at 09:02; Status DC Gadobutrol (Gadavist) 10 mmol 1X ONCE IV Last administered on 12/25/16 08:43; Start 12/25/16 at 09:00; Stop 12/25/16 at 09:01; Status DC Aspirin (Children'S Aspirin) 243 mg 1X ONCE PO Last administered on 12/25/16 09:03; Start 12/25/16 at 09:00; Stop 12/25/16 at 09:06; Status DC Sodium Chloride 1,000 ml @ 100 mls/hr Q10H IV Last administered on 12/26/16 12 :03; Start 12/25/16 at 10:00 Enoxaparin Sodium (Lovenox 40mg Syringe) 40 mg BID SQ Last administered on 08:57; Start 12/25/16 at 11:00 Labetalol HCl (Normodyne) 10 mg PRN Q10MIN PRN IVP COMM; Start 12/25/16 at 10:00 Simvastatin (Zocor) 10 mg QHS PO Last administered on 12/25/16t 20:56; Start 12/25/16 at 21:00 Acetaminophen (Tylenol) 650 mg PRN Q4HRS PRN PO TEMP > 100.4F; Start 12/25/16 at 10:15 Acetaminophen (Acetaminophen Supp) 650 mg PRN Q4HRS PRN [place] TEMP > 100.4F; Start 12/25/16 at 10:00 Clopidogrel Bisulfate (Plavix) 75 mg DAILYWBKFT PO Last administered on 08:57; Start 12/25/16 at 12:00 Iohexol (Omnipaque 300 Mg/ml) 75 ml 1X ONCE IV ; Start 12/25/16 at 11:45; Stop 12/25/16 at 11:46; Status DC Info (Do NOT chart on this entry -- for MONITORING) 1 each PRN DAILY PRN MC SEE COMMENTS; Start 12/25/16 at 11:45; Stop 12/27/16 at 11:44 Iohexol (Omnipaque 300 Mg/ml) 75 ml STK-MED ONCE .ROUTE ; Start 12/25/16 at 12:01 ; Stop 12/25/16 at 12:02; Status DC Propofol 40 ml @ As Directed STK-MED ONCE IV ; Start 12/25/16 at 12:23; Stop 12/25 at 12:24; Status DC Lidocaine HCl (Lidocaine Pf 2% Vial) 5 ml STK-MED ONCE .ROUTE ; Start 12/25/16 at 12:23; Stop 12/25/16 at 12:24; Status DC Ondansetron HCl (Zofran) 4 mg PRN Q6HRS PRN IV NAUSEA/VOMITING; Start 12/25/16 at 12:45; Stop 12/25/16 at 18:00; Status DC Fentanyl Citrate (Fentanyl 2ml Vial) 25 mcg PRN Q5MIN PRN IV MILD PAIN; Start 12/25/16 at 12:45; Stop 12/25/16 at 18:00; Status DC Fentanyl Citrate (Fentanyl 2ml Vial) 50 mcg PRN Q5MIN PRN IV MODERATE PAIN; Start 12/25/16 at 12:45; Stop 12/25/16 at 18:00; Status DC Morphine Sulfate 1 mg PRN Q10MIN PRN IV SEVERE PAIN; Start 12/25/16 at 12:45; Stop 12/25/16 at 18:00; Status DC Ringer's Solution 1,000 ml @ 30 mls/hr Q24H IV Last administered on 12/25/16 12:40; Start 12/25/16 at 12:37; Stop 12/26/16 at 00:36; Status DC Lidocaine HCl 2 ml PRN 1X PRN ID PRIOR TO IV START; Start 12/25/16 at 12:45; Stop 12/25/16 at 18:00; Status DC Hydromorphone HCl (Dilaudid) 0.5 mg PRN Q10MIN PRN IV SEV PAIN, Second choice; Start 12/25/16 at 12:45; Stop 12/26/16 at 12:44; Status DC Prochlorperazine Edisylate (Compazine) 5 mg PACU PRN PRN IV NAUSEA, MRX1; Start 12/25/16 at 12:45; Stop 12/25/16 at 18:00; Status DC Lidocaine HCl (Xylocaine 2% Topical 30gm Tube) 1 antonio 1X ONCE TP Last administered on 12/25/16 12:40; Start 12/25/16 at 13:45; Stop 12/25/16 at 13:52; Status DC Benzocaine (Hurricaine One) 2 spray 1X ONCE MM Last administered on 12/25/16 12:40; Start 12/25/16 at 13:45; Stop 12/25/16 at 13:52; Status DC Hydroxychloroquine Sulfate (Plaquenil) 200 mg BID PO Last administered on 08:57; Start 12/25/16 at 21:00 Non-Formulary Medication 1 puff PRN Q4-6HRS PRN INH SHORTNESS OF BREATH; Start 12/25/16 at 15:00; Stop 12/25/16 at 15:16; Status DC Non-Formulary Medication 2.5 mcg DAILY IH ; Start 12/26/16 at 09:00; Stop at 09:00; Status DC Aspirin (Solomon Aspirin) 325 mg DAILYWBKFT PO Last administered on 12/26/16 08: 57; Start 12/25/16 at 15:00 Nicotine Polacrilex (Nicorette Gum) 1 each PRN Q1HR PRN BC SMOKING CESSATION; Start 12/25/16 at 15:00 Nicotine (Nicoderm Cq 14mg) 1 patch PRN DAILY PRN TD SMOKING CESSATION; Start 12/25/16 at 15:00 Albuterol/ Ipratropium (Duoneb) 3 ml RTQID NEB Last administered on 12/26/16 12 :46; Start 12/25/16 at 16:00 Albuterol Sulfate (Ventolin Neb Soln) 2.5 mg PRN Q4HRS PRN NEB SHORTNESS OF BREATH; Start 12/25/16 at 15:15 Active Scripts Active Reported Plaquenil (Hydroxychloroquine Sulfate) 200 Mg Tablet 200 Mg PO BID Proair Hfa Inhaler (Albuterol Sulfate) 8.5 Gm Hfa.aer.ad 1 Puff INH PRN Q4-6HRS PRN Spiriva Respimat (Tiotropium [place]) 4 Gm Mist.inhal 2.5 Mcg IH DAILY Vitals/I & O Vital Sign - Last 24 Hours 12/25/16 12/25/16 12/25/16 12/25/16 13:29 13:44 14:54 15:51 Temp 97.7 97.7 97.8 97.7 97.7 97.8 Pulse 91 91 88 Resp 15 20 B/P (MAP) 133/49 130/52 136/71 (92) Pulse Ox 93 93 94 96 O2 Delivery Room Air Room Air Room Air Room Air 12/25/16 12/25/16 12/25/16 12/25/16 19:45 19:59 20:21 20:43 Temp 100.6 100.6 Pulse 87 Resp 20 B/P (MAP) 137/86 (103) Pulse Ox 93 O2 Delivery Room Air Room Air Room Air Room Air 12/25/16 12/26/16 12/26/16 12/26/16 23:58 02:54 07:23 07:37 Temp 100.0 99.3 97.5 100.0 99.3 97.5 Pulse 100 86 96 Resp 20 20 18 B/P (MAP) 113/70 (84) 114/58 (76) 152/79 (103) Pulse Ox 94 94 92 93 O2 Delivery Room Air Room Air Room Air Room Air 12/26/16 12/26/16 12/26/16 12/26/16 08:00 09:02 11:00 12:47 Temp 97.7 97.7 Pulse 59 Resp 18 B/P (MAP) 115/64 (81) Pulse Ox 93 O2 Delivery Room Air Room Air Room Air Room Air Intake and Output 12/26/16 12/26/16 12/27/16 15:00 23:00 07:00 Intake Total 200 ml Balance 200 ml NAZANIN MARRUFO MD Dec 26, 2016 13:24
--- NOTE | 2016-12-26 13:57 | PDOC ---
PROGRESS NOTES Assessment Multiple right hemispheric infarcts, no embolic source in the cranial arteries, or heart according to verbal report of CARLOS. Plan Statin Plavix Discontinue aspirin, Plavix alone I consulted Dr. Glynn to help with decision whether she needs inpatient versus outpatient rehabilitation. Aiming for discharge tomorrow. Discussed with family. Subjective No complaints Objective Vital Signs Date Time Temp Pulse Resp B/P (MAP) Pulse Ox O2 Delivery O2 Flow Rate FiO2 12/26/16 12:47 Room Air 12/26/16 11:00 97.7 59 18 115/64 (81) 93 97.7 Intake and Output 12/27/16 07:00 Intake Total 200 ml Balance 200 ml Intake Oral 200 ml PHYSICAL EXAM Alert. Oriented to time, place and person. PERRL. EOMI. CN: Left central facial weakness Muscle tone: normal. Muscle strength: 4/5 left hand, otherwise 5/5 DTR: 2+ Plantar reflex: Flexor Gait: not examined in bed. Sensory exam: no abnormal findings. No cerebellar signs elicited. Review of Relevant I have reviewed the following items anabel (where applicable) has been applied. Labs Laboratory Tests Test 12/25/16 07:38 12/25/16 08:13 12/26/16 04:35 White Blood Count 8.9 x10^3/uL (4.0-11.0) 9.2 x10^3/uL (4.0-11.0) Red Blood Count 5.36 x10^6/uL (3.50-5.40) 5.06 x10^6/uL (3.50-5.40) Hemoglobin 16.3 g/dL (12.0-15.5) 14.9 g/dL (12.0-15.5) Hematocrit 48.6 % (36.0-47.0) 45.7 % (36.0-47.0) Mean Corpuscular Volume 91 fL (79-100) 90 fL (79-100) Mean Corpuscular Hemoglobin 30 pg (25-35) 30 pg (25-35) Mean Corpuscular Hemoglobin Concent 34 g/dL (31-37) 33 g/dL (31-37) Red Cell Distribution Width 13.7 % (11.5-14.5) 13.8 % (11.5-14.5) Platelet Count 235 x10^3/uL (140-400) 210 x10^3/uL (140-400) Neutrophils (%) (Auto) 73 % (31-73) 74 % (31-73) Lymphocytes (%) (Auto) 17 % (24-48) 15 % (24-48) Monocytes (%) (Auto) 7 % (0-9) 8 % (0-9) Eosinophils (%) (Auto) 2 % (0-3) 2 % (0-3) Basophils (%) (Auto) 1 % (0-3) 1 % (0-3) Neutrophils # (Auto) 6.5 x10^3uL (1.8-7.7) 6.8 x10^3uL (1.8-7.7) Lymphocytes # (Auto) 1.5 x10^3/uL (1.0-4.8) 1.4 x10^3/uL (1.0-4.8) Monocytes # (Auto) 0.6 x10^3/uL (0.0-1.1) 0.7 x10^3/uL (0.0-1.1) Eosinophils # (Auto) 0.2 x10^3/uL (0.0-0.7) 0.2 x10^3/uL (0.0-0.7) Basophils # (Auto) 0.1 x10^3/uL (0.0-0.2) 0.1 x10^3/uL (0.0-0.2) Sodium Level 141 mmol/L (136-145) 140 mmol/L (136-145) Potassium Level 4.0 mmol/L (3.5-5.1) 4.0 mmol/L (3.5-5.1) Chloride Level 103 mmol/L (98-107) 104 mmol/L (98-107) Carbon Dioxide Level 32 mmol/L (21-32) 28 mmol/L (21-32) Anion Gap 6 (6-14) 8 (6-14) Blood Urea Nitrogen 20 mg/dL (7-20) 17 mg/dL (7-20) Creatinine 0.8 mg/dL (0.6-1.0) 0.8 mg/dL (0.6-1.0) Estimated GFR (Cockcroft-Gault) 72.4 72.4 BUN/Creatinine Ratio 25 (6-20) Glucose Level 115 mg/dL (70-99) 112 mg/dL (70-99) Calcium Level 9.3 mg/dL (8.5-10.1) 8.7 mg/dL (8.5-10.1) Total Bilirubin 0.4 mg/dL (0.2-1.0) Aspartate Amino Transf (AST/SGOT) 12 U/L (15-37) Alanine Aminotransferase (ALT/SGPT) 24 U/L (14-59) Alkaline Phosphatase 100 U/L (46-116) Troponin I Quantitative < 0.017 ng/mL (0.000-0.055) Total Protein 7.3 g/dL (6.4-8.2) Albumin 3.6 g/dL (3.4-5.0) Albumin/Globulin Ratio 1.0 (1.0-1.7) Urine Collection Type Unknown Urine Color Yellow Urine Clarity Clear Urine pH 5.0 Urine Specific Saffell 1.010 Urine Protein Negative mg/dL (NEG-TRACE) Urine Glucose (UA) Negative mg/dL (NEG) Urine Ketones (Stick) Negative mg/dL (NEG) Urine Blood Negative (NEG) Urine Nitrite Negative (NEG) Urine Bilirubin Negative (NEG) Urine Urobilinogen Dipstick 0.2 mg/dL (0.2 mg/dL) Urine Leukocyte Esterase Negative (NEG) Urine RBC 0 /HPF (0-2) Urine WBC 1-4 /HPF (0-4) Urine Squamous Epithelial Cells Few /LPF Urine Bacteria Few /HPF (0-FEW) Urine Mucus Slight /LPF Triglycerides Level 108 mg/dL (0-150) Cholesterol Level 168 mg/dL (0-200) LDL Cholesterol, Calculated 100 mg/dL (0-100) VLDL Cholesterol, Calculated 22 mg/dL (0-40) Non-HDL Cholesterol Calculated 122 mg/dL (0-129) HDL Cholesterol 46 mg/dL (40-60) Cholesterol/HDL Ratio 3.7 Laboratory Tests Test 12/26/16 04:35 White Blood Count 9.2 x10^3/uL (4.0-11.0) Red Blood Count 5.06 x10^6/uL (3.50-5.40) Hemoglobin 14.9 g/dL (12.0-15.5) Hematocrit 45.7 % (36.0-47.0) Mean Corpuscular Volume 90 fL (79-100) Mean Corpuscular Hemoglobin 30 pg (25-35) Mean Corpuscular Hemoglobin Concent 33 g/dL (31-37) Red Cell Distribution Width 13.8 % (11.5-14.5) Platelet Count 210 x10^3/uL (140-400) Neutrophils (%) (Auto) 74 % (31-73) Lymphocytes (%) (Auto) 15 % (24-48) Monocytes (%) (Auto) 8 % (0-9) Eosinophils (%) (Auto) 2 % (0-3) Basophils (%) (Auto) 1 % (0-3) Neutrophils # (Auto) 6.8 x10^3uL (1.8-7.7) Lymphocytes # (Auto) 1.4 x10^3/uL (1.0-4.8) Monocytes # (Auto) 0.7 x10^3/uL (0.0-1.1) Eosinophils # (Auto) 0.2 x10^3/uL (0.0-0.7) Basophils # (Auto) 0.1 x10^3/uL (0.0-0.2) Sodium Level 140 mmol/L (136-145) Potassium Level 4.0 mmol/L (3.5-5.1) Chloride Level 104 mmol/L (98-107) Carbon Dioxide Level 28 mmol/L (21-32) Anion Gap 8 (6-14) Blood Urea Nitrogen 17 mg/dL (7-20) Creatinine 0.8 mg/dL (0.6-1.0) Estimated GFR (Cockcroft-Gault) 72.4 Glucose Level 112 mg/dL (70-99) Calcium Level 8.7 mg/dL (8.5-10.1) Triglycerides Level 108 mg/dL (0-150) Cholesterol Level 168 mg/dL (0-200) LDL Cholesterol, Calculated 100 mg/dL (0-100) VLDL Cholesterol, Calculated 22 mg/dL (0-40) Non-HDL Cholesterol Calculated 122 mg/dL (0-129) HDL Cholesterol 46 mg/dL (40-60) Cholesterol/HDL Ratio 3.7 Medications Current Medications Ondansetron HCl (Zofran) 4 mg PRN Q8HRS PRN IV NAUSEA/VOMITING; Start 9/6/17 at 08:15; Stop 12/26/16 at 08:14; Status DC Morphine Sulfate 4 mg PRN Q2HR PRN IV PAIN; Start 12/25/16 at 08:15; Stop at 08:14; Status DC Acetaminophen (Tylenol) 650 mg PRN Q4HRS PRN PO FEVER; Start 12/25/16 at 08:15; Stop 12/25/16 at 11:06; Status DC Aspirin (Solomon Aspirin) 325 mg 1X ONCE PO ; Start 12/25/16 at 08:45; Stop at 09:02; Status DC Gadobutrol (Gadavist) 10 mmol 1X ONCE IV Last administered on 12/25/16 08:43; Start 12/25/16 at 09:00; Stop 12/25/16 at 09:01; Status DC Aspirin (Children'S Aspirin) 243 mg 1X ONCE PO Last administered on 12/25/16 09:03; Start 12/25/16 at 09:00; Stop 12/25/16 at 09:06; Status DC Sodium Chloride 1,000 ml @ 100 mls/hr Q10H IV Last administered on 12/26/16 12 :03; Start 12/25/16 at 10:00; Stop 12/26/16 at 13:19; Status DC Enoxaparin Sodium (Lovenox 40mg Syringe) 40 mg BID SQ Last administered on 08:57; Start 12/25/16 at 11:00 Labetalol HCl (Normodyne) 10 mg PRN Q10MIN PRN IVP COMM; Start 12/25/16 at 10:00 Simvastatin (Zocor) 10 mg QHS PO Last administered on 12/25/16 20:56; Start 12/25/16 at 21:00 Acetaminophen (Tylenol) 650 mg PRN Q4HRS PRN PO TEMP > 100.4F; Start 12/25/16 at 10:15 Acetaminophen (Acetaminophen Supp) 650 mg PRN Q4HRS PRN AK TEMP > 100.4F; Start 12/25/16 at 10:00; Stop 12/26/16 at 13:19; Status DC Clopidogrel Bisulfate (Plavix) 75 mg DAILYWBKFT PO Last administered on 9/7/ 17at 08:57; Start 12/25/16 at 12:00 Iohexol (Omnipaque 300 Mg/ml) 75 ml 1X ONCE IV ; Start 12/25/16 at 11:45; Stop 12/25/16 at 11:46; Status DC Info (Do NOT chart on this entry -- for MONITORING) 1 each PRN DAILY PRN MC SEE COMMENTS; Start 12/25/16 at 11:45; Stop 12/27/16 at 11:44 Iohexol (Omnipaque 300 Mg/ml) 75 ml STK-MED ONCE .ROUTE ; Start 12/25/16 at 12:01 ; Stop 12/25/16 at 12:02; Status DC Propofol 40 ml @ As Directed STK-MED ONCE IV ; Start 12/25/16 at 12:23; Stop 12/25 at 12:24; Status DC Lidocaine HCl (Lidocaine Pf 2% Vial) 5 ml STK-MED ONCE .ROUTE ; Start 12/25/16 at 12:23; Stop 12/25/16 at 12:24; Status DC Ondansetron HCl (Zofran) 4 mg PRN Q6HRS PRN IV NAUSEA/VOMITING; Start 12/25/16 at 12:45; Stop 12/25/16 at 18:00; Status DC Fentanyl Citrate (Fentanyl 2ml Vial) 25 mcg PRN Q5MIN PRN IV MILD PAIN; Start 12/25/16 at 12:45; Stop 12/25/16 at 18:00; Status DC Fentanyl Citrate (Fentanyl 2ml Vial) 50 mcg PRN Q5MIN PRN IV MODERATE PAIN; Start 12/25/16 at 12:45; Stop 12/25/16 at 18:00; Status DC Morphine Sulfate 1 mg PRN Q10MIN PRN IV SEVERE PAIN; Start 12/25/16 at 12:45; Stop 12/25/16 at 18:00; Status DC Ringer's Solution 1,000 ml @ 30 mls/hr Q24H IV Last administered on 12/25/16t 12:40; Start 12/25/16 at 12:37; Stop 12/26/16 at 00:36; Status DC Lidocaine HCl 2 ml PRN 1X PRN ID PRIOR TO IV START; Start 12/25/16 at 12:45; Stop 12/25/16 at 18:00; Status DC Hydromorphone HCl (Dilaudid) 0.5 mg PRN Q10MIN PRN IV SEV PAIN, Second choice; Start 12/25/16 at 12:45; Stop 12/26/16 at 12:44; Status DC Prochlorperazine Edisylate (Compazine) 5 mg PACU PRN PRN IV NAUSEA, MRX1; Start 12/25/16 at 12:45; Stop 12/25/16 at 18:00; Status DC Lidocaine HCl (Xylocaine 2% Topical 30gm Tube) 1 antonio 1X ONCE TP Last administered on 12/25/16 12:40; Start 12/25/16 at 13:45; Stop 12/25/16 at 13:52; Status DC Benzocaine (Hurricaine One) 2 spray 1X ONCE MM Last administered on 12/25/16 12:40; Start 12/25/16 at 13:45; Stop 12/25/16 at 13:52; Status DC Hydroxychloroquine Sulfate (Plaquenil) 200 mg BID PO Last administered on 08:57; Start 12/25/16 at 21:00 Non-Formulary Medication 1 puff PRN Q4-6HRS PRN INH SHORTNESS OF BREATH; Start 12/25/16 at 15:00; Stop 12/25/16 at 15:16; Status DC Non-Formulary Medication 2.5 mcg DAILY IH ; Start 12/26/16 at 09:00; Stop at 09:00; Status DC Aspirin (Solomon Aspirin) 325 mg DAILYWBKFT PO Last administered on 12/26/16 08: 57; Start 12/25/16 at 15:00 Nicotine Polacrilex (Nicorette Gum) 1 each PRN Q1HR PRN BC SMOKING CESSATION; Start 12/25/16 at 15:00 Nicotine (Nicoderm Cq 14mg) 1 patch PRN DAILY PRN TD SMOKING CESSATION; Start 12/25/16 at 15:00 Albuterol/ Ipratropium (Duoneb) 3 ml RTQID NEB Last administered on 12/26/16 12 :46; Start 12/25/16 at 16:00 Albuterol Sulfate (Ventolin Neb Soln) 2.5 mg PRN Q4HRS PRN NEB SHORTNESS OF BREATH; Start 12/25/16 at 15:15 Active Scripts Active Reported Plaquenil (Hydroxychloroquine Sulfate) 200 Mg Tablet 200 Mg PO BID Proair Hfa Inhaler (Albuterol Sulfate) 8.5 Gm Hfa.aer.ad 1 Puff INH PRN Q4-6HRS PRN Spiriva Respimat (Tiotropium Morton) 4 Gm Mist.inhal 2.5 Mcg IH DAILY Vitals/I & O Vital Sign - Last 24 Hours 12/25/16 12/25/16 12/25/16 12/25/16 14:54 15:51 19:45 19:59 Temp 97.8 97.8 Pulse 88 Resp 20 B/P (MAP) 136/71 (92) Pulse Ox 94 96 O2 Delivery Room Air Room Air Room Air Room Air 12/25/16 12/25/16 12/25/16 12/26/16 20:21 20:43 23:58 02:54 Temp 100.6 100.0 99.3 100.6 100.0 99.3 Pulse 87 100 86 Resp 20 20 20 B/P (MAP) 137/86 (103) 113/70 (84) 114/58 (76) Pulse Ox 93 94 94 O2 Delivery Room Air Room Air Room Air Room Air 12/26/16 12/26/16 12/26/16 12/26/16 07:23 07:37 08:00 09:02 Temp 97.5 97.5 Pulse 96 Resp 18 B/P (MAP) 152/79 (103) Pulse Ox 92 93 O2 Delivery Room Air Room Air Room Air Room Air 12/26/16 12/26/16 11:00 12:47 Temp 97.7 97.7 Pulse 59 Resp 18 B/P (MAP) 115/64 (81) Pulse Ox 93 O2 Delivery Room Air Room Air Intake and Output 12/26/16 12/26/16 12/27/16 15:00 23:00 07:00 Intake Total 200 ml Balance 200 ml Images CTA: CTA targeted to the major vessels off the arch of the aorta as well as the carotid vessels and the intracranial vessels was performed. Note is made of the MRI examination performed the same day demonstrating infarcts in the right cerebral hemisphere. Approximately 75 cc of Omnipaque 300 was administered. Images were generated and reviewed in the coronal and sagittal planes. Volume rendered images were also generated and reviewed There are emphysematous and fibrotic changes at the lung apices. A significant soft tissue finding in the neck is not seen. There are degenerative changes in the cervical spine. The innominate artery originates unremarkably off the arch and bifurcates normally. The left common carotid also originates unremarkably off the arch as does the left subclavian. Those portions of each subclavian artery which were seen appeared unremarkable The innominate artery bifurcates unremarkably into the right common carotid and right subclavian. The most proximal common carotid is somewhat tortuous. The bifurcation is unremarkable without evidence of significant stenosis. The internal carotid is slightly tortuous. The horizontal and cavernous segments appear unremarkable. There is no significant finding seen associated with the supraclinoid segment. The left common carotid originates unremarkably. There is no significant stenosis at the bifurcation. The internal carotid appears unremarkable. The horizontal and cavernous segments appear normal. No significant disease is seen associated with the supraclinoid segment. The vertebral arteries originate unremarkably off their respective subclavian arteries. The vertebral arteries unite unremarkably to form the basilar artery. At the [place] the left A1 segment is slightly hypoplastic likely a normal variant. The anterior cerebrals are seen and appear unremarkable. Posterior cerebral arteries appear unremarkable. Significant vascular anomaly is not seen. IMPRESSION: No evidence of significant arterial disease seen in the head or neck. Echocardiogram, , normal. MRI of the brain, 12/17/16, subacute infarct in right parietal frontal lobe, evidence of small petechial hemorrhage in right parietal lobe Carotid Dopplers, 12/17/16, negative Also reviewed laboratory studies from Dr. Ontiveros's office TONA ELIZABETH MD Dec 26, 2016 13:57
[2016-12-26 15:00] VITALS: BP 141/77
--- NOTE | 2016-12-26 15:16 | PDOC ---
Provider Note Provider Note dictated DESIREE FISCHER MD Dec 26, 2016 15:16
--- NOTE | 2016-12-26 15:27 | CONS ---
DATE OF CONSULTATION: ATTENDING PHYSICIAN: Dr. Ponce. REASON FOR CONSULTATION: Chronic obstructive pulmonary disease. HISTORY OF PRESENT ILLNESS: The patient is a 61-year-old female who presented to the hospital after she was noted to have weakness in her left hand and facial weakness. The patient was seen by a neurologist, Dr. Shipley, and is diagnosed to have multiple right hemispheric infarcts. I have been asked to see her for further evaluation of her chronic obstructive pulmonary disease. Apparently, the patient smoked for 30 years, quit twice previously, but then started smoking last 6 months. She has occasional shortness of breath, no chronic cough. No history of deep vein thrombosis or pulmonary embolism. She is morbidly obese with a BMI of 40. Her chest x-ray was clear. She only uses p.r.n. ProAir. PAST MEDICAL HISTORY: Significant for: 1. Underlying obesity. 2. Suspected chronic obstructive pulmonary disease, unknown FEV1. 3. Hypertension. 4. Low back pain. PAST SURGICAL HISTORY: No recent surgery. FAMILY HISTORY: Noncontributory to lungs. ALLERGIES: None. MEDICATIONS: Reviewed as listed in the MRAD. She is on DuoNeb as well and deep venous thrombosis prophylaxis. SOCIAL HISTORY: Smoked for 30 years, quit twice, but then restarted smoking 6 months ago. She smokes 1 pack per day. PHYSICAL EXAMINATION: VITAL SIGNS: Reviewed, pulse ox 93% on room air. NECK: Supple. LUNGS: Clear. CARDIOVASCULAR: Regular rate and rhythm. ABDOMEN: Soft, obese. EXTREMITIES: With no pitting edema. LABORATORY DATA: Reviewed. White cell count 9.2, hemoglobin 14.9, platelets are 210. IMPRESSION: 1. Underlying suspected chronic obstructive pulmonary disease with ongoing tobaccoism. 2. Underlying morbid obesity. Suspect obstructive sleep apnea. 3. Recent multiple right hemispheric infarcts. RECOMMENDATIONS: 1. Discussed with the patient regarding importance of quitting cigarettes and she has a strong desire to quit it. 2. Continue with present DuoNeb. 3. Pulmonary function tests as an outpatient. 4. She may benefit from outpatient sleep study. I did discuss with her that untreated sleep apnea may be a potential risk factor for a stroke. 5. Weight loss is advised. 6. We will follow along with you. DESIREE FISCHER MD DR: RUBY/mayi JOB#: [id number] / [id number]
[2016-12-26 19:27] VITALS: BP 142/66
[2016-12-26] MEDS: SIMVASTATIN 10 MG TABLET PO SCH (20:51)
[2016-12-26 23:13] VITALS: BP 121/77
[2016-12-27 03:11] VITALS: BP 135/58
--- NOTE | 2016-12-27 03:31 | CONS ---
DATE OF CONSULTATION: 12/26/2016 ATTENDING PHYSICIAN: Dr. Ponce. The patient was seen at the request of Dr. Shipley for rehab evaluation. 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 The patient woke up on the morning of 12/25/2016 with left facial weakness and some dysarthria. Symptoms have an improved, last known normal being around 10:00 p.m. on 12/24/2016. About 2 weeks ago, she started having sudden onset of left hand weakness. She had radiological studies including MRI scan of the brain which was negative. Also had echocardiogram and carotid Doppler studies. She takes aspirin daily. No prior history of stroke, seizures or head injury. The patient with known hypertension, asthmatic bronchitis. No known allergic to any medication. Family history of carcinoma. She is , smokes one pack of cigarettes per day. No alcohol. The patient since admission had CT scan of her brain, which failed to reveal any acute abnormalities. Chest x-ray revealed no acute process. MRI scan of the brain revealed large late subacute infarct centered in the right parietal lobe, although likely component of superimposed more acute infarct along the cortical surface associated prominent laminar necrosis and a few small foci of recent likely subacute infarct of the right frontal lobe and right occipital lobe. Increased CSF signal cerebrospinal fluid signal of the optic nerve sheaths and small pituitary gland, findings could be incidental although can be associated with intact intracranial hypertension. The patient had CTA of the head and neck, which failed to reveal any significant disease in the head or neck. The patient is being followed by physical therapy, occupational therapy and speech pathology. She admits that her speech is better. She denies any trouble with her bowel or bladder control or swallowing. The patient to have echocardiogram done tomorrow. PHYSICAL EXAMINATION: Today revealed a middle-aged female. She is obese. She is alert, oriented to time, place, person and circumstance and follows commands appropriately. No obvious visual field cut noted. She had mild left central facial paresis. I did not see any communication difficulties or any obvious cognitive difficulties. 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 She had incoordination using her left hand. Deep tendon reflexes are 2+ at the knees, absent at both ankles and she had equal perception of touch and pinprick sensation bilaterally. She is independent with bed mobility, transfers, and walking. She can walk on her tiptoes and on her heels and can walk on a straight line one foot in front of other and she can climb stairs holding on to the railing without any difficulty or loss of balance. ASSESSMENT: A middle-aged female with known hypertension and also smoker and asthmatic bronchitis with recent onset multiinfarct cerebrovascular accident with mild left upper extremity weakness and incoordination and left central facial paresis and dysarthria; and she also presents with degenerative joint disease of both knees without any significant pain. RECOMMENDATIONS: Home when medically stable with outpatient occupational therapy followup at referred physical therapy where her is scheduled to go for his therapy about his left hand where he had a cat bite and some ligamentous injury. Dr. Shipley, I appreciate asking me to participate in the care of this interesting patient. She does not need any inpatient rehab program. CLAUDIA POLLARD MD DR: CINTHIA/mayi JOB#: [id number] / [id number]
[2016-12-27 05:43] LABS: BASO # 0.1 x10^3/uL (0.0-0.2); BASO % 1 % (0-3); EOS % 5 % (0-3); HEMATOCRIT 43.3 % (36.0-47.0); HEMOGLOBIN 14.7 g/dL (12.0-15.5); LYMPH # 1.1 x10^3/uL (1.0-4.8); LYMPH % 18 % (24-48); MEAN CORPUSCULAR HEMOGLOBIN 30 pg (25-35); MEAN CORPUSCULAR HGB CONC 34 g/dL (31-37); MEAN CORPUSCULAR VOLUME 88 fL (79-100); MONO % 8 % (0-9); NEUT % 68 % (31-73); PLATELET COUNT 192 x10^3/uL (140-400); RED CELL DISTRIBUTION WIDTH 13.6 % (11.5-14.5); WHITE BLOOD COUNT 6.3 x10^3/uL (4.0-11.0)
[2016-12-27 06:00] LABS: CALCIUM 8.8 mg/dL (8.5-10.1); CREATININE 0.9 mg/dL (0.6-1.0); GFR 63.2; POTASSIUM 4.2 mmol/L (3.5-5.1)
[2016-12-27] MEDS: IPRATRPIUM/ALBUTEROL 0.5/2.5MG 3 ML NEBU. NEB SCH ×2 (06:56→10:58)
[2016-12-27 07:34] VITALS: BP 130/70
[2016-12-27] MEDS: CLOPIDOGREL BISULFATE 75 MG TABLET PO SCH (08:02)
[2016-12-27] MEDS: ENOXAPARIN 40 MG/0.4 ML SYRINGE. SQ SCH (08:03)
[2016-12-27] MEDS: HYDROXYCHLOROQUINE 200 MG TABLET PO SCH (08:03)
--- NOTE | 2016-12-27 09:09 | PDOC ---
PROGRESS NOTES Subjective Subjective No new complaints. Objective Objective Vital Signs Date Time Temp Pulse Resp B/P (MAP) Pulse Ox O2 Delivery O2 Flow Rate FiO2 12/27/16 08:00 Room Air 12/27/16 07:34 98.1 82 18 130/70 (90) 94 98.1 Physical Exam Physical Exam She is alert,sitting up in bedside chair and she continues with left central facial paresis and left hand weakness and [id number] using left upper extremity.She is independent with her mobility including climbing stairs not using any assistive devices.PVR volume is 69 ml. acceptable. Plan Plan of Assisted when medically stable after echo and I have arranged for her to attend out patient occupational therapy follow up at [facility] where her will be attending for his hand problem.I have advised her and her to try to quit smoking and nicotine patch may be indicated. I have advised her to use isotoner glove to help ease edema of left hand. Comment Review of Relevant I have reviewed the following items anabel (where applicable) has been applied. Labs Laboratory Tests Test 12/26/16 04:35 12/27/16 04:15 12/27/16 04:45 White Blood Count 9.2 x10^3/uL (4.0-11.0) 6.3 x10^3/uL (4.0-11.0) Red Blood Count 5.06 x10^6/uL (3.50-5.40) 4.90 x10^6/uL (3.50-5.40) Hemoglobin 14.9 g/dL (12.0-15.5) 14.7 g/dL (12.0-15.5) Hematocrit 45.7 % (36.0-47.0) 43.3 % (36.0-47.0) Mean Corpuscular Volume 90 fL (79-100) 88 fL (79-100) Mean Corpuscular Hemoglobin 30 pg (25-35) 30 pg (25-35) Mean Corpuscular Hemoglobin Concent 33 g/dL (31-37) 34 g/dL (31-37) Red Cell Distribution Width 13.8 % (11.5-14.5) 13.6 % (11.5-14.5) Platelet Count 210 x10^3/uL (140-400) 192 x10^3/uL (140-400) Neutrophils (%) (Auto) 74 % (31-73) 68 % (31-73) Lymphocytes (%) (Auto) 15 % (24-48) 18 % (24-48) Monocytes (%) (Auto) 8 % (0-9) 8 % (0-9) Eosinophils (%) (Auto) 2 % (0-3) 5 % (0-3) Basophils (%) (Auto) 1 % (0-3) 1 % (0-3) Neutrophils # (Auto) 6.8 x10^3uL (1.8-7.7) 4.2 x10^3uL (1.8-7.7) Lymphocytes # (Auto) 1.4 x10^3/uL (1.0-4.8) 1.1 x10^3/uL (1.0-4.8) Monocytes # (Auto) 0.7 x10^3/uL (0.0-1.1) 0.5 x10^3/uL (0.0-1.1) Eosinophils # (Auto) 0.2 x10^3/uL (0.0-0.7) 0.3 x10^3/uL (0.0-0.7) Basophils # (Auto) 0.1 x10^3/uL (0.0-0.2) 0.1 x10^3/uL (0.0-0.2) Sodium Level 140 mmol/L (136-145) 141 mmol/L (136-145) Potassium Level 4.0 mmol/L (3.5-5.1) 4.2 mmol/L (3.5-5.1) Chloride Level 104 mmol/L (98-107) 105 mmol/L (98-107) Carbon Dioxide Level 28 mmol/L (21-32) 30 mmol/L (21-32) Anion Gap 8 (6-14) 6 (6-14) Blood Urea Nitrogen 17 mg/dL (7-20) 16 mg/dL (7-20) Creatinine 0.8 mg/dL (0.6-1.0) 0.9 mg/dL (0.6-1.0) Estimated GFR (Cockcroft-Gault) 72.4 63.2 Glucose Level 112 mg/dL (70-99) 110 mg/dL (70-99) Calcium Level 8.7 mg/dL (8.5-10.1) 8.8 mg/dL (8.5-10.1) Triglycerides Level 108 mg/dL (0-150) Cholesterol Level 168 mg/dL (0-200) LDL Cholesterol, Calculated 100 mg/dL (0-100) VLDL Cholesterol, Calculated 22 mg/dL (0-40) Non-HDL Cholesterol Calculated 122 mg/dL (0-129) HDL Cholesterol 46 mg/dL (40-60) Cholesterol/HDL Ratio 3.7 Laboratory Tests Test 12/27/16 04:15 12/27/16 04:45 White Blood Count 6.3 x10^3/uL (4.0-11.0) Red Blood Count 4.90 x10^6/uL (3.50-5.40) Hemoglobin 14.7 g/dL (12.0-15.5) Hematocrit 43.3 % (36.0-47.0) Mean Corpuscular Volume 88 fL (79-100) Mean Corpuscular Hemoglobin 30 pg (25-35) Mean Corpuscular Hemoglobin Concent 34 g/dL (31-37) Red Cell Distribution Width 13.6 % (11.5-14.5) Platelet Count 192 x10^3/uL (140-400) Neutrophils (%) (Auto) 68 % (31-73) Lymphocytes (%) (Auto) 18 % (24-48) Monocytes (%) (Auto) 8 % (0-9) Eosinophils (%) (Auto) 5 % (0-3) Basophils (%) (Auto) 1 % (0-3) Neutrophils # (Auto) 4.2 x10^3uL (1.8-7.7) Lymphocytes # (Auto) 1.1 x10^3/uL (1.0-4.8) Monocytes # (Auto) 0.5 x10^3/uL (0.0-1.1) Eosinophils # (Auto) 0.3 x10^3/uL (0.0-0.7) Basophils # (Auto) 0.1 x10^3/uL (0.0-0.2) Sodium Level 141 mmol/L (136-145) Potassium Level 4.2 mmol/L (3.5-5.1) Chloride Level 105 mmol/L (98-107) Carbon Dioxide Level 30 mmol/L (21-32) Anion Gap 6 (6-14) Blood Urea Nitrogen 16 mg/dL (7-20) Creatinine 0.9 mg/dL (0.6-1.0) Estimated GFR (Cockcroft-Gault) 63.2 Glucose Level 110 mg/dL (70-99) Calcium Level 8.8 mg/dL (8.5-10.1) Medications Current Medications Ondansetron HCl (Zofran) 4 mg PRN Q8HRS PRN IV NAUSEA/VOMITING; Start 12/25/16 at 08:15; Stop 12/26/16 at 08:14; Status DC Morphine Sulfate 4 mg PRN Q2HR PRN IV PAIN; Start 12/25/16 at 08:15; Stop at 08:14; Status DC Acetaminophen (Tylenol) 650 mg PRN Q4HRS PRN PO FEVER; Start 12/25/16 at 08:15; Stop 12/25/16 at 11:06; Status DC Aspirin (Solomon Aspirin) 325 mg 1X ONCE PO ; Start 12/25/16 at 08:45; Stop at 09:02; Status DC Gadobutrol (Gadavist) 10 mmol 1X ONCE IV Last administered on 12/25/16 08:43; Start 12/25/16 at 09:00; Stop 12/25/16 at 09:01; Status DC Aspirin (Children'S Aspirin) 243 mg 1X ONCE PO Last administered on 12/25/16 09:03; Start 12/25/16 at 09:00; Stop 12/25/16 at 09:06; Status DC Sodium Chloride 1,000 ml @ 100 mls/hr Q10H IV Last administered on 12/26/16 12 :03; Start 12/25/16 at 10:00; Stop 12/26/16 at 13:19; Status DC Enoxaparin Sodium (Lovenox 40mg Syringe) 40 mg BID SQ Last administered on 08:03; Start 12/25/16 at 11:00 Labetalol HCl (Normodyne) 10 mg PRN Q10MIN PRN IVP COMM; Start 12/25/16 at 10:00 Simvastatin (Zocor) 10 mg QHS PO Last administered on 12/26/16t 20:51; Start 12/25/16 at 21:00 Acetaminophen (Tylenol) 650 mg PRN Q4HRS PRN PO TEMP > 100.4F; Start 12/25/16 at 10:15 Acetaminophen (Acetaminophen Supp) 650 mg PRN Q4HRS PRN [place] TEMP > 100.4F; Start 12/25/16 at 10:00; Stop 12/26/16 at 13:19; Status DC Clopidogrel Bisulfate (Plavix) 75 mg DAILYWBKFT PO Last administered on t 08:02; Start 12/25/16 at 12:00 Iohexol (Omnipaque 300 Mg/ml) 75 ml 1X ONCE IV ; Start 12/25/16 at 11:45; Stop 12/25/16 at 11:46; Status DC Info (Do NOT chart on this entry -- for MONITORING) 1 each PRN DAILY PRN MC SEE COMMENTS; Start 12/25/16 at 11:45; Stop 12/27/16 at 11:44 Iohexol (Omnipaque 300 Mg/ml) 75 ml STK-MED ONCE .ROUTE ; Start 12/25/16 at 12:01 ; Stop 12/25/16 at 12:02; Status DC Propofol 40 ml @ As Directed STK-MED ONCE IV ; Start 12/25/16 at 12:23; Stop 12/25 at 12:24; Status DC Lidocaine HCl (Lidocaine Pf 2% Vial) 5 ml STK-MED ONCE .ROUTE ; Start 12/25/16 at 12:23; Stop 12/25/16 at 12:24; Status DC Ondansetron HCl (Zofran) 4 mg PRN Q6HRS PRN IV NAUSEA/VOMITING; Start 12/25/16 at 12:45; Stop 12/25/16 at 18:00; Status DC Fentanyl Citrate (Fentanyl 2ml Vial) 25 mcg PRN Q5MIN PRN IV MILD PAIN; Start 12/25/16 at 12:45; Stop 12/25/16 at 18:00; Status DC Fentanyl Citrate (Fentanyl 2ml Vial) 50 mcg PRN Q5MIN PRN IV MODERATE PAIN; Start 12/25/16 at 12:45; Stop 12/25/16 at 18:00; Status DC Morphine Sulfate 1 mg PRN Q10MIN PRN IV SEVERE PAIN; Start 12/25/16 at 12:45; Stop 12/25/16 at 18:00; Status DC Ringer's Solution 1,000 ml @ 30 mls/hr Q24H IV Last administered on 12/25/16 12:40; Start 12/25/16 at 12:37; Stop 12/26/16 at 00:36; Status DC Lidocaine HCl 2 ml PRN 1X PRN ID PRIOR TO IV START; Start 12/25/16 at 12:45; Stop 12/25/16 at 18:00; Status DC Hydromorphone HCl (Dilaudid) 0.5 mg PRN Q10MIN PRN IV SEV PAIN, Second choice; Start 12/25/16 at 12:45; Stop 12/26/16 at 12:44; Status DC Prochlorperazine Edisylate (Compazine) 5 mg PACU PRN PRN IV NAUSEA, MRX1; Start 12/25/16 at 12:45; Stop 12/25/16 at 18:00; Status DC Lidocaine HCl (Xylocaine 2% Topical 30gm Tube) 1 antonio 1X ONCE TP Last administered on 12/25/16 12:40; Start 12/25/16 at 13:45; Stop 12/25/16 at 13:52; Status DC Benzocaine (Hurricaine One) 2 spray 1X ONCE MM Last administered on 12/25/16 12:40; Start 12/25/16 at 13:45; Stop 12/25/16 at 13:52; Status DC Hydroxychloroquine Sulfate (Plaquenil) 200 mg BID PO Last administered on 08:03; Start 12/25/16 at 21:00 Non-Formulary Medication 1 puff PRN Q4-6HRS PRN INH SHORTNESS OF BREATH; Start 12/25/16 at 15:00; Stop 12/25/16 at 15:16; Status DC Non-Formulary Medication 2.5 mcg DAILY IH ; Start 12/26/16 at 09:00; Stop at 09:00; Status DC Aspirin (Solomon Aspirin) 325 mg DAILYWBKFT PO Last administered on 12/26/16 08: 57; Start 12/25/16 at 15:00; Stop 12/26/16 at 13:57; Status DC Nicotine Polacrilex (Nicorette Gum) 1 each PRN Q1HR PRN BC SMOKING CESSATION; Start 12/25/16 at 15:00 Nicotine (Nicoderm Cq 14mg) 1 patch PRN DAILY PRN TD SMOKING CESSATION; Start 12/25/16 at 15:00 Albuterol/ Ipratropium (Duoneb) 3 ml RTQID NEB Last administered on 12/27/16t 06 :56; Start 12/25/16 at 16:00 Albuterol Sulfate (Ventolin Neb Soln) 2.5 mg PRN Q4HRS PRN NEB SHORTNESS OF BREATH; Start 12/25/16 at 15:15 Active Scripts Active Reported Plaquenil (Hydroxychloroquine Sulfate) 200 Mg Tablet 200 Mg PO BID Proair Hfa Inhaler (Albuterol Sulfate) 8.5 Gm Hfa.aer.ad 1 Puff INH PRN Q4-6HRS PRN Spiriva Respimat (Tiotropium [place]) 4 Gm Mist.inhal 2.5 Mcg IH DAILY Vitals/I & O Vital Sign - Last 24 Hours 12/26/16 12/26/16 12/26/16 12/26/16 11:00 12:47 15:00 16:07 Temp 97.7 97.9 97.7 97.9 Pulse 59 103 Resp 18 20 B/P (MAP) 115/64 (81) 141/77 (98) Pulse Ox 93 94 O2 Delivery Room Air Room Air Room Air Room Air 12/26/16 12/26/16 12/26/16 12/26/16 19:27 20:00 20:30 23:13 Temp 97.9 97.9 97.9 97.9 Pulse 84 88 Resp 16 16 B/P (MAP) 142/66 (91) 121/77 (92) Pulse Ox 96 96 93 O2 Delivery Room Air Room Air Room Air Room Air 12/27/16 12/27/16 12/27/16 12/27/16 03:11 06:56 07:34 08:00 Temp 98.2 98.1 98.2 98.1 Pulse 90 82 Resp 18 18 B/P (MAP) 135/58 (83) 130/70 (90) Pulse Ox 94 96 94 O2 Delivery Room Air Room Air Room Air Room Air CLAUDIA POLLARD MD Dec 27, 2016 09:09
--- NOTE | 2016-12-27 10:04 | PDOC ---
PULMONARY PROGRESS NOTES Subjective no soa Vitals Vital Signs Date Time Temp Pulse Resp B/P (MAP) Pulse Ox O2 Delivery O2 Flow Rate FiO2 12/27/16 08:00 Room Air 12/27/16 07:34 98.1 82 18 130/70 (90) 94 98.1 General: Alert, No acute distress Lungs: Clear Cardiovascular: S1 Abdomen: Soft, Other (obese) Neuro Exam: Alert Extremities: No Edema Skin: Warm Labs Laboratory Tests Test 12/26/16 04:35 12/27/16 04:15 12/27/16 04:45 White Blood Count 9.2 x10^3/uL (4.0-11.0) 6.3 x10^3/uL (4.0-11.0) Red Blood Count 5.06 x10^6/uL (3.50-5.40) 4.90 x10^6/uL (3.50-5.40) Hemoglobin 14.9 g/dL (12.0-15.5) 14.7 g/dL (12.0-15.5) Hematocrit 45.7 % (36.0-47.0) 43.3 % (36.0-47.0) Mean Corpuscular Volume 90 fL (79-100) 88 fL (79-100) Mean Corpuscular Hemoglobin 30 pg (25-35) 30 pg (25-35) Mean Corpuscular Hemoglobin Concent 33 g/dL (31-37) 34 g/dL (31-37) Red Cell Distribution Width 13.8 % (11.5-14.5) 13.6 % (11.5-14.5) Platelet Count 210 x10^3/uL (140-400) 192 x10^3/uL (140-400) Neutrophils (%) (Auto) 74 % (31-73) 68 % (31-73) Lymphocytes (%) (Auto) 15 % (24-48) 18 % (24-48) Monocytes (%) (Auto) 8 % (0-9) 8 % (0-9) Eosinophils (%) (Auto) 2 % (0-3) 5 % (0-3) Basophils (%) (Auto) 1 % (0-3) 1 % (0-3) Neutrophils # (Auto) 6.8 x10^3uL (1.8-7.7) 4.2 x10^3uL (1.8-7.7) Lymphocytes # (Auto) 1.4 x10^3/uL (1.0-4.8) 1.1 x10^3/uL (1.0-4.8) Monocytes # (Auto) 0.7 x10^3/uL (0.0-1.1) 0.5 x10^3/uL (0.0-1.1) Eosinophils # (Auto) 0.2 x10^3/uL (0.0-0.7) 0.3 x10^3/uL (0.0-0.7) Basophils # (Auto) 0.1 x10^3/uL (0.0-0.2) 0.1 x10^3/uL (0.0-0.2) Sodium Level 140 mmol/L (136-145) 141 mmol/L (136-145) Potassium Level 4.0 mmol/L (3.5-5.1) 4.2 mmol/L (3.5-5.1) Chloride Level 104 mmol/L (98-107) 105 mmol/L (98-107) Carbon Dioxide Level 28 mmol/L (21-32) 30 mmol/L (21-32) Anion Gap 8 (6-14) 6 (6-14) Blood Urea Nitrogen 17 mg/dL (7-20) 16 mg/dL (7-20) Creatinine 0.8 mg/dL (0.6-1.0) 0.9 mg/dL (0.6-1.0) Estimated GFR (Cockcroft-Gault) 72.4 63.2 Glucose Level 112 mg/dL (70-99) 110 mg/dL (70-99) Calcium Level 8.7 mg/dL (8.5-10.1) 8.8 mg/dL (8.5-10.1) Triglycerides Level 108 mg/dL (0-150) Cholesterol Level 168 mg/dL (0-200) LDL Cholesterol, Calculated 100 mg/dL (0-100) VLDL Cholesterol, Calculated 22 mg/dL (0-40) Non-HDL Cholesterol Calculated 122 mg/dL (0-129) HDL Cholesterol 46 mg/dL (40-60) Cholesterol/HDL Ratio 3.7 Laboratory Tests Test 12/27/16 04:15 9/8/17 04:45 White Blood Count 6.3 x10^3/uL (4.0-11.0) Red Blood Count 4.90 x10^6/uL (3.50-5.40) Hemoglobin 14.7 g/dL (12.0-15.5) Hematocrit 43.3 % (36.0-47.0) Mean Corpuscular Volume 88 fL (79-100) Mean Corpuscular Hemoglobin 30 pg (25-35) Mean Corpuscular Hemoglobin Concent 34 g/dL (31-37) Red Cell Distribution Width 13.6 % (11.5-14.5) Platelet Count 192 x10^3/uL (140-400) Neutrophils (%) (Auto) 68 % (31-73) Lymphocytes (%) (Auto) 18 % (24-48) Monocytes (%) (Auto) 8 % (0-9) Eosinophils (%) (Auto) 5 % (0-3) Basophils (%) (Auto) 1 % (0-3) Neutrophils # (Auto) 4.2 x10^3uL (1.8-7.7) Lymphocytes # (Auto) 1.1 x10^3/uL (1.0-4.8) Monocytes # (Auto) 0.5 x10^3/uL (0.0-1.1) Eosinophils # (Auto) 0.3 x10^3/uL (0.0-0.7) Basophils # (Auto) 0.1 x10^3/uL (0.0-0.2) Sodium Level 141 mmol/L (136-145) Potassium Level 4.2 mmol/L (3.5-5.1) Chloride Level 105 mmol/L (98-107) Carbon Dioxide Level 30 mmol/L (21-32) Anion Gap 6 (6-14) Blood Urea Nitrogen 16 mg/dL (7-20) Creatinine 0.9 mg/dL (0.6-1.0) Estimated GFR (Cockcroft-Gault) 63.2 Glucose Level 110 mg/dL (70-99) Calcium Level 8.8 mg/dL (8.5-10.1) Medications Active Scripts Medications Dose Route/Sig Max Daily Dose Days Date Category Plaquenil (Hydroxychloroquine Sulfate) 200 Mg Tablet 200 Mg PO BID 12/25/16 Reported Proair Hfa Inhaler (Albuterol Sulfate) 8.5 Gm Hfa.aer.ad 1 Puff INH PRN Q4-6HRS PRN 12/25/16 Reported Spiriva Respimat (Tiotropium [place]) 4 Gm Mist.inhal 2.5 Mcg IH DAILY 12/25/16 Reported Impression . 1. Underlying suspected chronic obstructive pulmonary disease with ongoing tobaccoism. 2. Underlying morbid obesity. Suspect obstructive sleep apnea. 3. Recent multiple right hemispheric infarcts. Plan . 1. Discussed with the patient regarding importance of quitting cigarettes and she has a strong desire to quit it. 2. Continue with present DuoNeb. 3. Pulmonary function tests as an outpatient. 4. She may benefit from outpatient sleep study. I did discuss with her that untreated sleep apnea may be a potential risk factor for a stroke. 5. Weight loss is advised. 6. We will follow along with you. DESIREE FISCHER MD Dec 27, 2016 10:04
--- NOTE | 2016-12-27 10:20 | PDOC ---
PROGRESS NOTES Assessment Multiple right hemispheric infarcts, no embolic source in the cranial arteries, or heart Plan Statin Plavix Discontinue aspirin, Plavix alone Dr. Glynn states only needs outpatient rehabilitation. Okay for discharge Follow-up with neurology as needed Subjective No complaints Objective Vital Signs Date Time Temp Pulse Resp B/P (MAP) Pulse Ox O2 Delivery O2 Flow Rate FiO2 12/27/16 08:00 Room Air 12/27/16 07:34 98.1 82 18 130/70 (90) 94 98.1 PHYSICAL EXAM Alert. Oriented to time, place and person. PERRL. EOMI. CN: Left central facial weakness Muscle tone: normal. Muscle strength: 4/5 left hand, otherwise 5/5 DTR: 2+ Plantar reflex: Flexor Gait: not examined in bed. Sensory exam: no abnormal findings. No cerebellar signs elicited. Review of Relevant I have reviewed the following items anabel (where applicable) has been applied. Labs Laboratory Tests Test 12/26/16 04:35 12/27/16 04:15 12/27/16 04:45 White Blood Count 9.2 x10^3/uL (4.0-11.0) 6.3 x10^3/uL (4.0-11.0) Red Blood Count 5.06 x10^6/uL (3.50-5.40) 4.90 x10^6/uL (3.50-5.40) Hemoglobin 14.9 g/dL (12.0-15.5) 14.7 g/dL (12.0-15.5) Hematocrit 45.7 % (36.0-47.0) 43.3 % (36.0-47.0) Mean Corpuscular Volume 90 fL (79-100) 88 fL (79-100) Mean Corpuscular Hemoglobin 30 pg (25-35) 30 pg (25-35) Mean Corpuscular Hemoglobin Concent 33 g/dL (31-37) 34 g/dL (31-37) Red Cell Distribution Width 13.8 % (11.5-14.5) 13.6 % (11.5-14.5) Platelet Count 210 x10^3/uL (140-400) 192 x10^3/uL (140-400) Neutrophils (%) (Auto) 74 % (31-73) 68 % (31-73) Lymphocytes (%) (Auto) 15 % (24-48) 18 % (24-48) Monocytes (%) (Auto) 8 % (0-9) 8 % (0-9) Eosinophils (%) (Auto) 2 % (0-3) 5 % (0-3) Basophils (%) (Auto) 1 % (0-3) 1 % (0-3) Neutrophils # (Auto) 6.8 x10^3uL (1.8-7.7) 4.2 x10^3uL (1.8-7.7) Lymphocytes # (Auto) 1.4 x10^3/uL (1.0-4.8) 1.1 x10^3/uL (1.0-4.8) Monocytes # (Auto) 0.7 x10^3/uL (0.0-1.1) 0.5 x10^3/uL (0.0-1.1) Eosinophils # (Auto) 0.2 x10^3/uL (0.0-0.7) 0.3 x10^3/uL (0.0-0.7) Basophils # (Auto) 0.1 x10^3/uL (0.0-0.2) 0.1 x10^3/uL (0.0-0.2) Sodium Level 140 mmol/L (136-145) 141 mmol/L (136-145) Potassium Level 4.0 mmol/L (3.5-5.1) 4.2 mmol/L (3.5-5.1) Chloride Level 104 mmol/L (98-107) 105 mmol/L (98-107) Carbon Dioxide Level 28 mmol/L (21-32) 30 mmol/L (21-32) Anion Gap 8 (6-14) 6 (6-14) Blood Urea Nitrogen 17 mg/dL (7-20) 16 mg/dL (7-20) Creatinine 0.8 mg/dL (0.6-1.0) 0.9 mg/dL (0.6-1.0) Estimated GFR (Cockcroft-Gault) 72.4 63.2 Glucose Level 112 mg/dL (70-99) 110 mg/dL (70-99) Calcium Level 8.7 mg/dL (8.5-10.1) 8.8 mg/dL (8.5-10.1) Triglycerides Level 108 mg/dL (0-150) Cholesterol Level 168 mg/dL (0-200) LDL Cholesterol, Calculated 100 mg/dL (0-100) VLDL Cholesterol, Calculated 22 mg/dL (0-40) Non-HDL Cholesterol Calculated 122 mg/dL (0-129) HDL Cholesterol 46 mg/dL (40-60) Cholesterol/HDL Ratio 3.7 Laboratory Tests Test 12/27/16 04:15 12/27/16 04:45 White Blood Count 6.3 x10^3/uL (4.0-11.0) Red Blood Count 4.90 x10^6/uL (3.50-5.40) Hemoglobin 14.7 g/dL (12.0-15.5) Hematocrit 43.3 % (36.0-47.0) Mean Corpuscular Volume 88 fL (79-100) Mean Corpuscular Hemoglobin 30 pg (25-35) Mean Corpuscular Hemoglobin Concent 34 g/dL (31-37) Red Cell Distribution Width 13.6 % (11.5-14.5) Platelet Count 192 x10^3/uL (140-400) Neutrophils (%) (Auto) 68 % (31-73) Lymphocytes (%) (Auto) 18 % (24-48) Monocytes (%) (Auto) 8 % (0-9) Eosinophils (%) (Auto) 5 % (0-3) Basophils (%) (Auto) 1 % (0-3) Neutrophils # (Auto) 4.2 x10^3uL (1.8-7.7) Lymphocytes # (Auto) 1.1 x10^3/uL (1.0-4.8) Monocytes # (Auto) 0.5 x10^3/uL (0.0-1.1) Eosinophils # (Auto) 0.3 x10^3/uL (0.0-0.7) Basophils # (Auto) 0.1 x10^3/uL (0.0-0.2) Sodium Level 141 mmol/L (136-145) Potassium Level 4.2 mmol/L (3.5-5.1) Chloride Level 105 mmol/L (98-107) Carbon Dioxide Level 30 mmol/L (21-32) Anion Gap 6 (6-14) Blood Urea Nitrogen 16 mg/dL (7-20) Creatinine 0.9 mg/dL (0.6-1.0) Estimated GFR (Cockcroft-Gault) 63.2 Glucose Level 110 mg/dL (70-99) Calcium Level 8.8 mg/dL (8.5-10.1) Medications Current Medications Ondansetron HCl (Zofran) 4 mg PRN Q8HRS PRN IV NAUSEA/VOMITING; Start 12/25/16 at 08:15; Stop 12/26/16 at 08:14; Status DC Morphine Sulfate 4 mg PRN Q2HR PRN IV PAIN; Start 12/25/16 at 08:15; Stop at 08:14; Status DC Acetaminophen (Tylenol) 650 mg PRN Q4HRS PRN PO FEVER; Start 12/25/16 at 08:15; Stop 12/25/16 at 11:06; Status DC Aspirin (Solomon Aspirin) 325 mg 1X ONCE PO ; Start 12/25/16 at 08:45; Stop at 09:02; Status DC Gadobutrol (Gadavist) 10 mmol 1X ONCE IV Last administered on 12/25/16 08:43; Start 12/25/16 at 09:00; Stop 12/25/16 at 09:01; Status DC Aspirin (Children'S Aspirin) 243 mg 1X ONCE PO Last administered on 12/25/16 09:03; Start 12/25/16 at 09:00; Stop 12/25/16 at 09:06; Status DC Sodium Chloride 1,000 ml @ 100 mls/hr Q10H IV Last administered on 12/26/16 12 :03; Start 12/25/16 at 10:00; Stop 12/26/16 at 13:19; Status DC Enoxaparin Sodium (Lovenox 40mg Syringe) 40 mg BID SQ Last administered on 08:03; Start 12/25/16 at 11:00 Labetalol HCl (Normodyne) 10 mg PRN Q10MIN PRN IVP COMM; Start 12/25/16 at 10:00 Simvastatin (Zocor) 10 mg QHS PO Last administered on 12/26/16 20:51; Start 12/25/16 at 21:00 Acetaminophen (Tylenol) 650 mg PRN Q4HRS PRN PO TEMP > 100.4F; Start 12/25/16 at 10:15 Acetaminophen (Acetaminophen Supp) 650 mg PRN Q4HRS PRN NE TEMP > 100.4F; Start 12/25/16 at 10:00; Stop 12/26/16 at 13:19; Status DC Clopidogrel Bisulfate (Plavix) 75 mg DAILYWBKFT PO Last administered on t 08:02; Start 12/25/16 at 12:00 Iohexol (Omnipaque 300 Mg/ml) 75 ml 1X ONCE IV ; Start 12/25/16 at 11:45; Stop 12/25/16 at 11:46; Status DC Info (Do NOT chart on this entry -- for MONITORING) 1 each PRN DAILY PRN MC SEE COMMENTS; Start 12/25/16 at 11:45; Stop 12/27/16 at 11:44 Iohexol (Omnipaque 300 Mg/ml) 75 ml STK-MED ONCE .ROUTE ; Start 12/25/16 at 12:01 ; Stop 12/25/16 at 12:02; Status DC Propofol 40 ml @ As Directed STK-MED ONCE IV ; Start 12/25/16 at 12:23; Stop 12/25 at 12:24; Status DC Lidocaine HCl (Lidocaine Pf 2% Vial) 5 ml STK-MED ONCE .ROUTE ; Start 12/25/16 at 12:23; Stop 12/25/16 at 12:24; Status DC Ondansetron HCl (Zofran) 4 mg PRN Q6HRS PRN IV NAUSEA/VOMITING; Start 12/25/16 at 12:45; Stop 12/25/16 at 18:00; Status DC Fentanyl Citrate (Fentanyl 2ml Vial) 25 mcg PRN Q5MIN PRN IV MILD PAIN; Start 12/25/16 at 12:45; Stop 12/25/16 at 18:00; Status DC Fentanyl Citrate (Fentanyl 2ml Vial) 50 mcg PRN Q5MIN PRN IV MODERATE PAIN; Start 12/25/16 at 12:45; Stop 12/25/16 at 18:00; Status DC Morphine Sulfate 1 mg PRN Q10MIN PRN IV SEVERE PAIN; Start 12/25/16 at 12:45; Stop 12/25/16 at 18:00; Status DC Ringer's Solution 1,000 ml @ 30 mls/hr Q24H IV Last administered on 12/25/16 12:40; Start 12/25/16 at 12:37; Stop 12/26/16 at 00:36; Status DC Lidocaine HCl 2 ml PRN 1X PRN ID PRIOR TO IV START; Start 12/25/16 at 12:45; Stop 12/25/16 at 18:00; Status DC Hydromorphone HCl (Dilaudid) 0.5 mg PRN Q10MIN PRN IV SEV PAIN, Second choice; Start 12/25/16 at 12:45; Stop 12/26/16 at 12:44; Status DC Prochlorperazine Edisylate (Compazine) 5 mg PACU PRN PRN IV NAUSEA, MRX1; Start 12/25/16 at 12:45; Stop 12/25/16 at 18:00; Status DC Lidocaine HCl (Xylocaine 2% Topical 30gm Tube) 1 antonio 1X ONCE TP Last administered on 12/25/16 12:40; Start 12/25/16 at 13:45; Stop 12/25/16 at 13:52; Status DC Benzocaine (Hurricaine One) 2 spray 1X ONCE MM Last administered on 12/25/16 12:40; Start 12/25/16 at 13:45; Stop 12/25/16 at 13:52; Status DC Hydroxychloroquine Sulfate (Plaquenil) 200 mg BID PO Last administered on 08:03; Start 12/25/16 at 21:00 Non-Formulary Medication 1 puff PRN Q4-6HRS PRN INH SHORTNESS OF BREATH; Start 12/25/16 at 15:00; Stop 12/25/16 at 15:16; Status DC Non-Formulary Medication 2.5 mcg DAILY IH ; Start 12/26/16 at 09:00; Stop at 09:00; Status DC Aspirin (Solomon Aspirin) 325 mg DAILYWBKFT PO Last administered on 12/26/16 08: 57; Start 12/25/16 at 15:00; Stop 12/26/16 at 13:57; Status DC Nicotine Polacrilex (Nicorette Gum) 1 each PRN Q1HR PRN BC SMOKING CESSATION; Start 12/25/16 at 15:00 Nicotine (Nicoderm Cq 14mg) 1 patch PRN DAILY PRN TD SMOKING CESSATION; Start 12/25/16 at 15:00 Albuterol/ Ipratropium (Duoneb) 3 ml RTQID NEB Last administered on 12/27/16t 06 :56; Start 12/25/16 at 16:00 Albuterol Sulfate (Ventolin Neb Soln) 2.5 mg PRN Q4HRS PRN NEB SHORTNESS OF BREATH; Start 12/25/16 at 15:15 Active Scripts Active Reported Plaquenil (Hydroxychloroquine Sulfate) 200 Mg Tablet 200 Mg PO BID Proair Hfa Inhaler (Albuterol Sulfate) 8.5 Gm Hfa.aer.ad 1 Puff INH PRN Q4-6HRS PRN Spiriva Respimat (Tiotropium [place]) 4 Gm Mist.inhal 2.5 Mcg IH DAILY Vitals/I & O Vital Sign - Last 24 Hours 12/26/16 12/26/16 12/26/16 12/26/16 11:00 12:47 15:00 16:07 Temp 97.7 97.9 97.7 97.9 Pulse 59 103 Resp 18 20 B/P (MAP) 115/64 (81) 141/77 (98) Pulse Ox 93 94 O2 Delivery Room Air Room Air Room Air Room Air 12/26/16 12/26/16 12/26/16 12/26/16 19:27 20:00 20:30 23:13 Temp 97.9 97.9 97.9 97.9 Pulse 84 88 Resp 16 16 B/P (MAP) 142/66 (91) 121/77 (92) Pulse Ox 96 96 93 O2 Delivery Room Air Room Air Room Air Room Air 12/27/16 12/27/16 12/27/16 12/27/16 03:11 06:56 07:34 08:00 Temp 98.2 98.1 98.2 98.1 Pulse 90 82 Resp 18 18 B/P (MAP) 135/58 (83) 130/70 (90) Pulse Ox 94 96 94 O2 Delivery Room Air Room Air Room Air Room Air Images CARLOS Report unavailable TONA ELIZABETH MD Dec 27, 2016 10:20
[2016-12-27 11:40] VITALS: BP 136/77
[2016-12-27] MEDS ORDERED: CLOP75TA PO (11:53)
[2016-12-27] MEDS ORDERED: SIMV10TA3 PO (11:53)
--- NOTE | 2016-12-27 14:35 | PDOC3 ---
Discharge Summary [facility] Date of Admission: Dec 25, 2016 Discharge Date: Dec 27, 2016 Admitting Diagnosis right subacute parietal infarct with mild left facial droop and left hand weakness tobaccoism HTN morbid obesity Problems: CONSULTS card neuro Brief Hospital Course Ms. Reyes is a 61 old F, comes for left hand weakness and left facial droop. Pt said she found left hand weakness 2 weeks ago, never improve, did MRI with pcp at that time, neg. MRI here this time showed right subacute parietal infarct, CARLOS neg. left facial droop better, no swallow or speech problem. still left hand weakness , strength 2/5, arm is ok. dc home with plavix dc time 35min pt and her daughter c/o some breathing treatment from PCP for COPD WHICH she was never diagnosed of can increase risk of afib and stroke, i got pulm consulted since i never heard it before, but pt didnot talk to dr. Hernandez about it. and i cannot find an evidence saying pt has afib now. Physical Exam mild left facial droop left hand strength 2/5, forearm 4/5 General: Alert, Oriented X3, Cooperative, No acute distress Heart: Regular rate, Normal S1, Normal S2 Lungs: Clear Abdomen: Normal bowel sounds, Soft Extremities: No clubbing, No edema Skin: No rashes, No significant lesion Problems: Disposition home CONDITION AT DISCHARGE: Improved Diet home Scheduled Clopidogrel Bisulfate (Clopidogrel), 75 MG PO [id number] Hydroxychloroquine Sulfate (Plaquenil), 200 MG PO BID, (Reported) Simvastatin (Simvastatin), 10 MG PO QHS Scheduled PRN Albuterol Sulfate (Proair Hfa Inhaler), 1 PUFF INH PRN Q4-6HRS PRN for SHORTNESS OF BREATH, (Reported) Discontinued Medications Tiotropium [place] (Spiriva Respimat), 2.5 MCG IH DAILY, (Reported) Follow Up pcp and neuro in 2 weeks NAZANIN MARRUFO MD Dec 27, 2016 14:35
== END 2016-12-27 13:05 | disposition home or self-care (01) | DRG 64 ==
LOC: ER 07:06 → 6 SOUTH 08:14
PROVIDERS: ADMIT Internal Medicine; ATTEND Internal Medicine
DX: I63.9 Cerebral infarction, unspecified (principal); I61.1 Nontraumatic intracerebral hemorrhage in hemisphere, cortical; E66.01 Morbid (severe) obesity due to excess calories; I10 Essential (primary) hypertension; F17.210 Nicotine dependence, cigarettes, uncomplicated; J44.9 Chronic obstructive pulmonary disease, unspecified; M17.0 Bilateral primary osteoarthritis of knee; Z68.41 Body mass index [BMI] 40.0-44.9, adult; Z79.82 Long term (current) use of aspirin; Z86.73 Personal history of transient ischemic attack (TIA), and cerebral infarction without residual deficits
CPT/HCPCS: 93325; 99285; C8925; 36415; 70450; 70496; 70498; 70553; 71010; 80048; 80053; 80061; 81001; 84484; 85025; 93005; 94250; 94640; 94760; 96374; A9585; J1650; J2704; J7030; J7120; J7620; 92610; 97110; 97112; 97116; 97530; 97535; J2001